=== PATIENT | male | born 1970 | race Caucasian/White ===

== ENCOUNTER 2021-04-19 18:29 | Inpatient (IN) | payer OTHER, SELFPAY ==
[2021-04-19 18:29] VITALS: PULSE 98; RESP 18; TEMP 36.6; O2SAT 97; BMI 74.2
--- NOTE | 2021-04-19 19:18 | CT_ITS ---
INDICATION: diffuse severe abd pain EXAMINATION: CT Abdomen And Pelvis W/ Contrast Injection TECHNIQUE: Helically acquired images were obtained of the abdomen and pelvis after IV contrast. A radiation dose optimization technique was used for this scan. IV Contrast dosage and agent: IV 100mL [id number] Oral contrast: None. COMPARISON: None. FINDINGS: Visualized lung bases: Bibasilar atelectasis. Liver: Diffusely hypodense consistent with fatty liver. 1.4 cm simple cyst in the left hepatic lobe. There is a 3 mm stone seen within the common bile duct near the ampulla. The common bile duct is dilated measuring up to 9 mm. Gallbladder: Unremarkable Spleen: Unremarkable Pancreas: There is peripancreatic fat stranding. No focal fluid collection. No hypoenhancing areas in the pancreas. No main pancreatic duct dilatation. Adrenal Glands: Unremarkable Kidneys: Scattered too small to characterize subcentimeter hypodensities bilaterally. Vasculature: Mild scattered aortoiliac atherosclerotic calcifications. GI Tract: Unremarkable Lymphadenopathy: None Peritoneum: No ascites. Bladder: Collapsed. Reproductive organs: Unremarkable Bones/Soft tissues: No suspicious osseous or soft tissue lesions CT/Abdomen/Pelvis W IV Cont ONLY IMPRESSION: Gallstone pancreatitis with choledocholithiasis from a 3 mm stone seen at the ampulla with associated CBD dilatation. Consider ERCP. Electronically Signed: Nik Romero MD at 20:23 EDT Tel , Service support ,
--- NOTE | 2021-04-19 19:20 | ED.VIS.GI ---
HPI HPI - GI History of Present Illness Chief Complaint: Abd Pain Informant: patient and spouse/S.O. Abdominal Pain/Flank Pain Onset: Today (Several hours prior to arrival) Context: Sudden Onset Timing: Continuous (Not colicky) Quality: - (pain) Location: Diffuse (Across periumbilical abdomen bilaterally without radiation) Current Severity: Severe Maximum Severity: Severe Worsened by: Nothing Relieved by: Nothing Nausea/Vomiting/Emesis GI Symptom: Positive for Nausea and Vomiting (Started after pain onset) Diarrhea/Melena/Hematochezia GI Symptom: Positive for - (Last normal bowel movement was today, normal according to patient); Negative for Diarrhea, Melena and Hematochezia Associated Symptoms Associated Symptoms: Negative for Dysuria, Frequency, Hematuria and Urgency Narrative Narrative: Patient never had pain like this before. No history of prior abdominal surgeries. Did have some alcohol last night but none today. No history of pancreas issues. Recent Illness/Hospitalization: No [facility] Medical History (Updated 04/19/21 @ 21:[address] Alexandre Paz MD) HTN (hypertension) Hyperlipemia Home Medications lisinopril 5 mg PO DAILY 04/19/21 [History Last Taken Unknown] Allergy/AdvReac Type Severity Reaction Status Date / Time No Known Allergies Allergy Verified 04/19/21 18:31 Social History Smoking Status: Current every day smoker tobacco type: cigarettes ROS ROS ED Constitutional Constitutional ED: Denies chills or fever(s) Eyes Eyes: Denies change in vision or diplopia ENT ENT ED: Denies rhinorrhea or sore throat Cardiovascular Cardiovascular: Denies chest pain or palpitations Respiratory/Chest Respiratory/Chest: Denies cough or dyspnea Gastrointestinal Gastrointestinal: Reports as per HPI, abdominal pain, nausea and vomiting; Denies diarrhea Genitourinary Genitourinary ED: Denies dysuria or hematuria Musculoskeletal Musculoskeletal: Denies back pain or neck pain Integumentary Denies abscess or rash Neurologic Neurologic: Denies headache(s), paresthesias or weakness Psychiatric Psychiatric: Denies anxiety or suicidal thoughts EXAM Physical Exam Const Vital Signs: 04/19/21 18:29 Temperature 97.8 F Temperature Source Temporal Pulse Rate 98 Respiratory Rate 18 Pulse Ox 97 Oxygen Delivery Method Room Air Positive well nourished and well developed Constitutional Narrative: Patient in acute painful distress, wincing in pain General Appearance ED: well developed HEENT Reports moist mucous membranes normocephalic and atraumatic Eyes PERRL and EOMs intact bilaterally Neck full ROM and supple Resp normal respiratory effort and clear to auscultation bilaterally Cardio regular rate, regular rhythm and no murmurs GI non-distended Auscultation: normoactive bowel sounds Palpation: soft and tender epigastric (Only; no significant tenderness elsewhere, negative Mccoy's) Back/Spine no CVA tenderness General Back: other FROM Extremity normal to inspection General Extremety ED: Negative for edema, pulses abnormal or tenderness General Extremity: Negative for edema or pulses abnormal Neuro oriented x3, CN's II-XII intact bilaterally and no sensory deficits noted Sensorium / Orientation: awake and alert Motor Exam: strength 5/5 throughout Skin no rashes or lesions noted and no wounds MDM MDM MDM Narrative Medical decision making narrative: Labs and imaging consistent with gallstone pancreatitis with choledocholithiasis as shown below. Discussed with Dr. So who came and saw and admitted the patient. Symptoms partially improved with morphine and Zofran but the patient required hydromorphone. At the time of admission, patient is clinically and hemodynamically stable Lab Data Attestation: I reviewed the patient's lab results. Labs: Laboratory Results - last 24 hr 04/19/21 04/19/21 04/19/21 18:20 18:40 18:40 WBC 16.9 H RBC 5.62 Hgb 16.2 Hct 50.3 MCV 89.5 MCH 28.8 MCHC 32.2 RDW Std Deviation 42.6 RDW Coeff of Kimberlyn 13.0 Plt Count 295 MPV 11.8 Immature Gran % (Auto) 0.900 Neut % (Auto) 69.1 Lymph % (Auto) 18.0 L [place] % (Auto) 9.7 Eos % (Auto) 1.9 Baso % (Auto) 0.4 Absolute Neuts (auto) 11.7 H Absolute Lymphs (auto) 3.04 Nucleated RBC % 0 Differential Comment Diff Path Review May foll Platelet Estimate ADEQUATE RBC Morphology NORM C+C Sodium 136 Potassium 3.5 Chloride 101 Carbon Dioxide 25.0 Anion Gap 10 BUN 11 Creatinine 1.66 H Estim Creat Clear Calc 48.67 Est GFR (MDRD) Af Amer 56 L Est GFR (MDRD) Non-Af 46 L BUN/Creatinine Ratio 6.6 L Glucose 107 H Calcium 9.1 Total Bilirubin 4.00 H Direct Bilirubin 3.03 H AST 248 H ALT 436 H Alkaline Phosphatase 210 H Total Protein 8.1 Albumin 3.8 Globulin 4.3 H Lipase 8300 H Urine Color Urine Clarity Urine pH Ur Specific [place] Urine Protein Urine Glucose (UA) Urine Ketones Urine Occult Blood Urine Nitrite Urine Bilirubin Urine Urobilinogen Ur Leukocyte Esterase Urine RBC Urine WBC Ur Squamous Epith Cells Amorphous Sediment Urine Bacteria Urine Mucus 04/19/21 21:00 WBC RBC Hgb Hct MCV MCH MCHC RDW Std Deviation RDW Coeff of Kimberlyn Plt Count MPV Immature Gran % (Auto) Neut % (Auto) Lymph % (Auto) [place] % (Auto) Eos % (Auto) Baso % (Auto) Absolute Neuts (auto) Absolute Lymphs (auto) Nucleated RBC % Differential Comment Diff Path Review Platelet Estimate RBC Morphology Sodium Potassium Chloride Carbon Dioxide Anion Gap BUN Creatinine Estim Creat Clear Calc Est GFR (MDRD) Af Amer Est GFR (MDRD) Non-Af BUN/Creatinine Ratio Glucose Calcium Total Bilirubin Direct Bilirubin AST ALT Alkaline Phosphatase Total Protein Albumin Globulin Lipase Urine Color Yellow Urine Clarity Clear Urine pH 7.0 Ur Specific [place] 1.010 Urine Protein 100 H Urine Glucose (UA) Normal Urine Ketones 15 H Urine Occult Blood 25 H Urine Nitrite Negative Urine Bilirubin Negative Urine Urobilinogen Normal Ur Leukocyte Esterase Negative Urine RBC 5-10 SEEN Urine WBC 0-5 SEEN Ur Squamous Epith Cells 0 SEEN Amorphous Sediment 1+ Urine Bacteria 0 SEEN Urine Mucus 0 SEEN Radiography Diagnostic Testing: Radiology Impression Abdomen/Pelvis CT 04/19/21 19:18 IMPRESSION: Gallstone pancreatitis with choledocholithiasis from a 3 mm stone seen at the ampulla with associated CBD dilatation. Consider ERCP. Electronically Signed: Nik Romero MD at 20:23 EDT Tel , Service support , Discharge Plan Dx/Rx/DC Orders Clinical Impression: Acute gallstone pancreatitis, Choledocholithiasis with obstruction Disposition Disposition: [facility]
[2021-04-19 19:27] LABS: Anion Gap 10 (5-15); BUN 11 mg/dL (7-18); BUN/Creat Ratio 6.6 RATIO (10-20); Calcium,Total 9.1 mg/dL (8.5-10.1); Chloride 101 mmol/L (98-107); Creatinine, Serum 1.66 mg/dL (0.70-1.30); EST Glomerular Filtration Rate 46 mL/min (>60); Est Glom Filt Rate - Afr Amer 56 mL/min (>60); Estimated Creatinine Clearance 48.67 ml/min; Glucose 107 mg/dL (74-106); Potassium 3.5 mmol/L (3.5-5.1); Sodium Level 136 mmol/L (136-145)
[2021-04-19 19:32] LABS: Absolute Lymphocyte Count 3.04 X10^3/uL (0.83-4.51); Absolute Neutrophil Count 11.7 X10^3/uL (2.0-7.7); Basophil# 0.07 X10^3/uL; Basophil% 0.4 % (0-1); Eosinophil# 0.32 X10^3/uL; Eosinophils% 1.9 % (0-5); Hematocrit 50.3 % (40-54); Hemoglobin 16.2 g/dL (13.0-16.5); Lymphocyte # 3.04 X10^3/ul (0.83-4.51); Mean Corp Hgb Conc 32.2 g/dL (32-36); Mean Corpuscular Hgb 28.8 pg (27.0-32.0); Mean Corpuscular Volume 89.5 fL (80-94); Mean Platelet Vol. 11.8 fl (6.2-12.0); Monocyte# 1.64 X10^3/uL; Monocyte% 9.7 % (0-10); NRBC Flagged by Analyzer 0 % (0-5); Neutrophil # 11.69 X10^3/uL (2.7-7.7); Neutrophil % 69.1 % (47-70); POSITIVE DIFFERENTIAL YES; Platelet Count 295 K/mm3 (150-450); RBC Distribution Width SD 42.6 fl (35.1-43.9); Red Blood Count 5.62 M/mm3 (4.6-6.2); White Blood Count 16.9 K/mm3 (4.4-11.0)
[2021-04-19 19:38] LABS: Differential Indicated SCAN CRITERIA MET
[2021-04-19] MEDS: Morphine 4 MG/ML Syringe IV (20:03)
[2021-04-19] MEDS: Ondansetron 4 MG/2 ML Vial IV (20:03)
[2021-04-19] MEDS: 0.9% Normal Saline 1,000 ML 999 ML IV ×2 (20:03→21:43)
[2021-04-19 20:21] LABS: Platelet Estimate ADEQUATE (ADEQ); Red Cell Morphology NORM C+C NORMAL (NORM C&C)
[2021-04-19 20:33] LABS: AST(SGOT) 248 U/L (15-37); Alanine Aminotransfer ALT/SGPT 436 U/L (16-61); Albumin, Serum 3.8 g/dL (3.2-5.0); Alkaline Phosphatase 210 U/L (45-117); Bilirubin, Direct 3.03 mg/dL (0.00-0.30); Globulin 4.3 g/dL (2.2-4.2); Lipase 8300 U/L (73-393); Protein, Total 8.1 g/dL (6.4-8.2)
[2021-04-19] MEDS: HYDROmorphone 1 MG/ML Syringe IV ×2 (21:04→22:50)
[2021-04-19 21:11] LABS: Bacteria 0 SEEN /hpf (None Seen); Mucous, Urine 0 SEEN /hpf (<or=2+); Squamous Epithelial Cells - UA 0 SEEN /hpf (0-5)
[2021-04-19 21:12] LABS: Color, Urine Yellow (Yellow); Glucose, Dipstick Normal (Normal); Ketone-Dipstick 15 mg/dl (Negative); Leukocyte Esterase-Dipstick Negative /ul (Negative); Nitrite-Dipstick Negative (Negative); Occult Blood-Urine 25 /ul (Negative); Protein-Dipstick 100 mg/dl (Negative); Urine Bilirubin Dipstick Negative (Negative); Urine Clarity Clear (Clear); Urine Urobilinogen Normal (Normal)
[2021-04-19 21:36] LABS: Amorphous Sediment 1+; Red Blood Cells-Urine 5-10 SEEN /hpf (0-5); White Blood Cells 0-5 SEEN /hpf (0-5)
--- NOTE | 2021-04-19 21:42 | PCM.HP.STD ---
HPI - General HPI Narrative CAROLINE BARNETT, is a 50 M who presents with abdominal pain since this afternoon. Patient reports he has upper abdominal pain which does not radiate. He does have nausea but no vomiting. He is having chills with no fever. He has never had this happen to him before. No other symptoms. [facility] Medical History (Updated 04/19/21 @ 21:[address] Alexandre Paz MD) HTN (hypertension) Hyperlipemia Home Medications lisinopril 5 mg PO DAILY 04/19/21 [History Last Taken Unknown] Allergy/AdvReac Type Severity Reaction Status Date / Time No Known Allergies Allergy Verified 04/19/21 18:31 Social History Smoking Status: Current every day smoker tobacco type: cigarettes ROS Constitutional Constitutional: Reports chills; Denies anorexia, fatigue or fever(s) Eyes Eyes: Denies blurry vision ENT HEENT: Denies abnormal hearing Cardiovascular Cardiovascular: Denies chest pain Respiratory/Chest Respiratory/Chest: Denies cough, dyspnea on exertion or shortness of breath with exertion Gastrointestinal Gastrointestinal: Reports abdominal pain and nausea; Denies change in bowel habits, diarrhea, dysphagia or melena Genitourinary Genitourinary: Denies change in urinary stream Musculoskeletal Musculoskeletal: Denies abnormal gait Integumentary Integumentary: Denies jaundice Neurologic Neurologic: Denies abnormal gait Psychiatric Psychiatric: Denies anxiety Endocrine Endocrinology: Denies flushing Hematologic/Lymphatic Hematologic/Lymphatic: Denies easy bleeding Vital Signs Vital Signs Vital Signs: 04/19/21 18:29 Temperature 97.8 F Temperature Source Temporal Pulse Rate 98 Respiratory Rate 18 Pulse Ox 97 Oxygen Delivery Method Room Air Weight Weight: 473 lb 15.901 oz Body Mass Index (BMI) 74.2 Physical Exam Const oriented x3 and no apparent distress Resp normal respiratory effort Cardio regular rate and regular rhythm GI soft to palpation GI Narrative: Upper abdominal tenderness with no guarding or rebound Inspection: Negative for abdominal distention Extremity normal to inspection Results Lab / Micro Data Result Diagrams: 04/19/21 18:40 04/19/21 18:40 Labs: Laboratory Results - last 24 hr 04/19/21 04/19/21 04/19/21 18:20 18:40 18:40 WBC 16.9 H RBC 5.62 Hgb 16.2 Hct 50.3 MCV 89.5 MCH 28.8 MCHC 32.2 RDW Std Deviation 42.6 RDW Coeff of Kimberlyn 13.0 Plt Count 295 MPV 11.8 Immature Gran % (Auto) 0.900 Neut % (Auto) 69.1 Lymph % (Auto) 18.0 L [place] % (Auto) 9.7 Eos % (Auto) 1.9 Baso % (Auto) 0.4 Absolute Neuts (auto) 11.7 H Absolute Lymphs (auto) 3.04 Nucleated RBC % 0 Differential Comment Diff Path Review May foll Platelet Estimate ADEQUATE RBC Morphology NORM C+C Sodium 136 Potassium 3.5 Chloride 101 Carbon Dioxide 25.0 Anion Gap 10 BUN 11 Creatinine 1.66 H Estim Creat Clear Calc 48.67 Est GFR (MDRD) Af Amer 56 L Est GFR (MDRD) Non-Af 46 L BUN/Creatinine Ratio 6.6 L Glucose 107 H Calcium 9.1 Total Bilirubin 4.00 H Direct Bilirubin 3.03 H AST 248 H ALT 436 H Alkaline Phosphatase 210 H Total Protein 8.1 Albumin 3.8 Globulin 4.3 H Lipase 8300 H Urine Color Urine Clarity Urine pH Ur Specific [place] Urine Protein Urine Glucose (UA) Urine Ketones Urine Occult Blood Urine Nitrite Urine Bilirubin Urine Urobilinogen Ur Leukocyte Esterase Urine RBC Urine WBC Ur Squamous Epith Cells Amorphous Sediment Urine Bacteria Urine Mucus 04/19/21 21:00 WBC RBC Hgb Hct MCV MCH MCHC RDW Std Deviation RDW Coeff of Kimberlyn Plt Count MPV Immature Gran % (Auto) Neut % (Auto) Lymph % (Auto) [place] % (Auto) Eos % (Auto) Baso % (Auto) Absolute Neuts (auto) Absolute Lymphs (auto) Nucleated RBC % Differential Comment Diff Path Review Platelet Estimate RBC Morphology Sodium Potassium Chloride Carbon Dioxide Anion Gap BUN Creatinine Estim Creat Clear Calc Est GFR (MDRD) Af Amer Est GFR (MDRD) Non-Af BUN/Creatinine Ratio Glucose Calcium Total Bilirubin Direct Bilirubin AST ALT Alkaline Phosphatase Total Protein Albumin Globulin Lipase Urine Color Yellow Urine Clarity Clear Urine pH 7.[address] [place] 1.010 Urine Protein 100 H Urine Glucose (UA) Normal Urine Ketones 15 H Urine Occult Blood 25 H Urine Nitrite Negative Urine Bilirubin Negative Urine Urobilinogen Normal Ur Leukocyte Esterase Negative Urine RBC 5-10 SEEN Urine WBC 0-5 SEEN Ur Squamous Epith Cells 0 SEEN Amorphous Sediment 1+ Urine Bacteria 0 SEEN Urine Mucus 0 SEEN Radiology Impression Abdomen/Pelvis CT 04/19/21 19:18 IMPRESSION: Gallstone pancreatitis with choledocholithiasis from a 3 mm stone seen at the ampulla with associated CBD dilatation. Consider ERCP. Electronically Signed: Nik Romero MD at 20:23 EDT Tel , Service support , Assessment & Plan Assessment/Plan (1) Acute gallstone pancreatitis: PLAN: The patient has elevated lipase and his CT shows a stone in the distal common bile duct with dilation of the bile duct. The patient has gallstone pancreatitis. I discussed this with the patient in detail. I also discussed with him that I believe it is odd that he has only 1 calcified gallstone with none in the gallbladder. I will order an ultrasound the gallbladder to see if there are any noncalcified stones in the gallbladder. Patient will be admitted to the floor and given fluid bolus. He will be started on prophylactic antibiotics to prevent cholangitis. Labs will be rechecked in the morning and if LFTs remain elevated and there is no improvement I will perform an ERCP. If there is improvement in labs and ultrasound shows other stones in the gallbladder I will plan for laparoscopic cholecystectomy with cholangiogram. If there are no other stones in the gallbladder I may perform MRCP as he may not need a cholecystectomy. Patient understands the treatment plan and is in agreement. All questions were answered. He will be admitted to the floor and have close monitoring of urine output and vital signs. Continue resuscitation and fluid bolus. Adan So MD Pager: [facility] [address] [place] [address] [place] [address] Office:
[2021-04-19] MEDS: 0.9% Normal Saline 1,000 ML 150 ML IV (21:52)
[2021-04-19 22:25] VITALS: BP 112/72; PULSE 63; RESP 14; TEMP 36.6; O2SAT 95
[2021-04-19 23:32] VITALS: BMI 33.7
[2021-04-19 23:49] VITALS: BP 125/70; PULSE 65; RESP 16; TEMP 37.1; O2SAT 95
[2021-04-19 23:57] VITALS: RESP 14; O2SAT 91
[2021-04-20] VITALS (13 sets, daily range): BP systolic 117–143; BP diastolic 66–85; PULSE 63–102; RESP 16; TEMP 36.8–37.6; O2SAT 92–96; BMI 33.7
--- NOTE | 2021-04-20 | US_ITS ---
STUDY: ABDOMINAL ULTRASOUND - RIGHT UPPER QUADRANT REASON FOR VISIT: Male, 50 years old . Gallstone pancreatitis. TECHNIQUE: Ultrasound evaluation of the right upper quadrant was performed with real-time and static rhodes-scale imaging. TECHNICAL QUALITY: Limited. Examination limited by bowel gas. COMPARISON: Comparison is made with prior CT scan of the abdomen dated 04/19/2021. FINDINGS: Liver: The liver measures 14.3 cm. There is increased echogenicity consistent with fatty infiltration. The bile ducts are within normal limits. There is hepatic color flow. The direction of portal flow is hepatopetal. There is no demonstrated mass lesion. Gallbladder: Normal distended gallbladder. The gallbladder wall measures 3.1 mm. There is a negative sonographic Mccoy''s sign. There is no pericholecystic fluid. There is a solitary echogenic gallstone within the gallbladder. Common Bile Duct (C.B.D.): The common bile duct measures 8 mm. Only the proximal portion of the common bile duct wasn''t visualized due to overlying bowel gas. The tiny stone seen in the distal portion of the common bile duct on the CT scan is not seen on the ultrasound. Pancreas: There is nonvisualization of the pancreas due to overlying bowel gas. Right Kidney: Normal size of the right kidney. The right kidney measures 9.4 cm x 5.5 cm x 5.9 cm. Normal renal cortex. The right cortex measures 2.1 cm. There is a 1.5 cm x 1.2 cm x 1.2 cm cyst. There is no right hydronephrosis. US/Gallbladder IMPRESSION: Limited study due to overlying bowel gas. Fatty infiltration of the liver. 6 mm x 6 mm x 4 mm solitary gallstone in the gallbladder lumen. Dilated common bile duct. The distal portion of the common bile duct was not visualized due to overlying bowel gas. Electronically Signed: Issac Hudson MD at 8:58 EDT , Service support ,
[2021-04-20] MEDS: HYDROmorphone 1 MG/ML Syringe IV ×5 (01:12→20:22)
[2021-04-20] MEDS: 0.9% Normal Saline 1,000 ML 150 ML IV ×3 (04:11→23:50)
--- NOTE | 2021-04-20 06:00 | EKG12_ITS ---
Test Reason : PRE-OP Blood Pressure : / mmHG Vent. Rate : 082 BPM Atrial Rate : 082 BPM P-R Int : 168 ms QRS Dur : 082 ms QT Int : 384 ms P-R-T Axes : 040 -03 009 degrees QTc Int : 448 ms Normal sinus rhythm Normal ECG When compared with ECG of 26-JAN-2008 17:06, No significant change was found Confirmed by CELESTE CLARK, JOSE ([id number]), video effects editor MARIBELL SMITH ([id number]) on 04/25/2021 7:48:10 AM Referred By: KAY Confirmed By:JOSE ALONSO MD
[2021-04-20] MEDS: 0.9% Saline Lock 10 ML Syringe IV (06:40)
[2021-04-20 06:49] LABS: Absolute Lymphocyte Count 3.04 X10^3/uL (0.83-4.51); Absolute Neutrophil Count 12.2 X10^3/uL (2.0-7.7); Basophil# 0.08 X10^3/uL; Basophil% 0.5 % (0-1); Eosinophils% 1.7 % (0-5); Hematocrit 51.7 % (40-54); Hemoglobin 16.4 g/dL (13.0-16.5); Lymphocyte # 3.04 X10^3/ul (0.83-4.51); Lymphocyte % 17.4 % (19-41); Mean Corp Hgb Conc 31.7 g/dL (32-36); Mean Corpuscular Hgb 28.8 pg (27.0-32.0); Mean Corpuscular Volume 90.7 fL (80-94); Mean Platelet Vol. 12.4 fl (6.2-12.0); Monocyte# 1.74 X10^3/uL; NRBC Flagged by Analyzer 0 % (0-5); Neutrophil # 12.16 X10^3/uL (2.7-7.7); Neutrophil % 69.8 % (47-70); POSITIVE DIFFERENTIAL YES; Platelet Count 288 K/mm3 (150-450); RBC Distribution Width CV 13.2 % (11.6-14.6); White Blood Count 17.4 K/mm3 (4.4-11.0)
[2021-04-20 07:02] LABS: Differential Indicated SCAN CRITERIA MET
[2021-04-20 07:37] LABS: AST(SGOT) 269 U/L (15-37); Alanine Aminotransfer ALT/SGPT 447 U/L (16-61); Albumin, Serum 4.1 g/dL (3.2-5.0); Alkaline Phosphatase 224 U/L (45-117); Anion Gap 16 (5-15); BUN 12 mg/dL (7-18); BUN/Creat Ratio 7.1 RATIO (10-20); Calcium,Total 9.2 mg/dL (8.5-10.1); Chloride 99 mmol/L (98-107); Creatinine, Serum 1.69 mg/dL (0.70-1.30); EST Glomerular Filtration Rate 45 mL/min (>60); Est Glom Filt Rate - Afr Amer 55 mL/min (>60); Globulin 4.1 g/dL (2.2-4.2); Glucose 98 mg/dL (74-106); Potassium 4.8 mmol/L (3.5-5.1); Protein, Total 8.2 g/dL (6.4-8.2); Sodium Level 136 mmol/L (136-145)
--- NOTE | 2021-04-20 08:01 | PCM.PN.SRG ---
Subjective Subjective Patient still having abdominal pain with no nausea vomiting Objective Data Objective Data Vital Signs: Vital Signs Temp Pulse Resp BP Pulse Ox 98.2 F 74 16 135/85 H 95 04/20/21 03:51 04/20/21 03:51 04/20/21 03:51 04/20/21 03:51 04/20/21 03:51 Oxygen Delivery Method Room Air Weight: 215 lb 2.738 oz Body Mass Index (BMI) 33.7 Intake & Output: Intake and Output for Last 24 Hours 04/18/21 04/19/21 04/20/21 23:59 23:59 23:59 Intake Total 2049 1000 / 1000 Balance 2049 1000 / 1000 Lab / Micro Data Result Diagrams: 04/20/21 06:04 04/20/21 06:04 Labs: Laboratory Results - last 24 hr 04/19/21 04/19/21 04/19/21 18:20 18:40 18:40 WBC 16.9 H RBC 5.62 Hgb 16.2 Hct 50.3 MCV 89.5 MCH 28.8 MCHC 32.2 RDW Std Deviation 42.6 RDW Coeff of Kimberlyn 13.0 Plt Count 295 MPV 11.8 Immature Gran % (Auto) 0.900 Neut % (Auto) 69.1 Lymph % (Auto) 18.0 L [place] % (Auto) 9.7 Eos % (Auto) 1.9 Baso % (Auto) 0.4 Absolute Neuts (auto) 11.7 H Absolute Lymphs (auto) 3.04 Nucleated RBC % 0 Differential Comment Diff Path Review May foll Platelet Estimate ADEQUATE RBC Morphology NORM C+C Sodium 136 Potassium 3.5 Chloride 101 Carbon Dioxide 25.0 Anion Gap 10 BUN 11 Creatinine 1.66 H Estim Creat Clear Calc 48.67 Est GFR (MDRD) Af Amer 56 L Est GFR (MDRD) Non-Af 46 L BUN/Creatinine Ratio 6.6 L Glucose 107 H Calcium 9.1 Total Bilirubin 4.00 H Direct Bilirubin 3.03 H AST 248 H ALT 436 H Alkaline Phosphatase 210 H Total Protein 8.1 Albumin 3.8 Globulin 4.3 H Albumin/Globulin Ratio Lipase 8300 H Urine Color Urine Clarity Urine pH Ur Specific [place] Urine Protein Urine Glucose (UA) Urine Ketones Urine Occult Blood Urine Nitrite Urine Bilirubin Urine Urobilinogen Ur Leukocyte Esterase Urine RBC Urine WBC Ur Squamous Epith Cells Amorphous Sediment Urine Bacteria Urine Mucus 04/19/21 04/20/21 04/20/21 21:00 06:04 06:04 WBC 17.4 H RBC 5.70 Hgb 16.4 Hct 51.7 MCV 90.7 MCH 28.8 MCHC 31.7 L RDW Std Deviation 44.0 H RDW Coeff of Kimberlyn 13.2 Plt Count 288 MPV 12.4 H Immature Gran % (Auto) 0.600 Neut % (Auto) 69.8 Lymph % (Auto) 17.4 L [place] % (Auto) 10.0 Eos % (Auto) 1.7 Baso % (Auto) 0.5 Absolute Neuts (auto) 12.2 H Absolute Lymphs (auto) 3.04 Nucleated RBC % 0 Differential Comment Diff Path Review May foll Platelet Estimate RBC Morphology Sodium 136 Potassium 4.8 Chloride 99 Carbon Dioxide 21.0 Anion Gap 16 H BUN 12 Creatinine 1.69 H Estim Creat Clear Calc 47.80 Est GFR (MDRD) Af Amer 55 L Est GFR (MDRD) Non-Af 45 L BUN/Creatinine Ratio 7.1 L Glucose 98 Calcium 9.2 Total Bilirubin 4.00 H Direct Bilirubin AST 269 H ALT 447 H Alkaline Phosphatase 224 H Total Protein 8.2 Albumin 4.1 Globulin 4.1 Albumin/Globulin Ratio 1.0 Lipase 04372 H Urine Color Yellow Urine Clarity Clear Urine pH 7.0 Ur Specific [place] 1.010 Urine Protein 100 H Urine Glucose (UA) Normal Urine Ketones 15 H Urine Occult Blood 25 H Urine Nitrite Negative Urine Bilirubin Negative Urine Urobilinogen Normal Ur Leukocyte Esterase Negative Urine RBC 5-10 SEEN Urine WBC 0-5 SEEN Ur Squamous Epith Cells 0 SEEN Amorphous Sediment 1+ Urine Bacteria 0 SEEN Urine Mucus 0 SEEN Micro: Microbiology 04/19/21 21:45 Mucosa - Nose SARS-CoV-2 Antigen (Rapid) - Final Radiography Diagnostic Testing: Radiology Impression Abdomen/Pelvis CT 04/19/21 19:18 IMPRESSION: Gallstone pancreatitis with choledocholithiasis from a 3 mm stone seen at the ampulla with associated CBD dilatation. Consider ERCP. Electronically Signed: Nik Romero MD at 20:23 EDT Tel , Service support , Physical Exam Const oriented x3 and no apparent distress Resp normal respiratory effort Cardio regular rate and regular rhythm GI soft to palpation Inspection: Negative for abdominal distention Palpation: tender Assessment & Plan Assessment/Plan (1) Acute gallstone pancreatitis: PLAN: The patient's liver enzymes are unchanged since yesterday. The patient is still having discomfort. I will plan for ERCP this afternoon. I discussed ERCP in detail with the patient. I discussed the risks include abdominal to bleeding, infection, perforation of the bile duct or bowel, worsening of pancreatitis. The patient understands and is willing to proceed with ERCP. I discussed the possibility of stent placement. The patient's lipase has increased to over 42,000. The patient also still has elevated creatinine although he says he is urinating I will order a fluid bolus. Continue antibiotics and PPI. SCDs. N.p.o. with IV fluids. Since the stone in his duct is calcified and there are no calcified stones in his gallbladder I am also ordering an ultrasound the gallbladder see if there are additional stones in the gallbladder and if laparoscopic cholecystectomy will be necessary. Adan So MD Pager: [facility] [address] [place] [address], [address] [place] [address] Office:
[2021-04-20] MEDS: 0.9% Normal Saline 1,000 ML 999 ML IV (08:10)
--- NOTE | 2021-04-20 12:10 | CASEMGMT ---
CORBY BERNAL Assessment: Face to Face with pt for initial transition planning/care coordination assessment. RN GABE introduced self and role at [facility], pt voices understanding and consents to assessment. Pt is A/O x4 and answers all questions appropriately at this time. Pt lying in bed with eyes closed, at bedside. Care providers, pharmacy, and demographics verified/updated. Admitting Dx: gallstone pancreatitis PCP:Ivon at the [facility] Specialists: Pt denies having any specialists. Preferred Pharmacy: [facility] Retail Insurance: [facility] Prescription Benefit: through the [facility] LW/HPOA: Pt denies having a LW or DPOA. LNOK: Evonne Peters, Living Arrangements: Pt lives with in a two story house with 1 step to enter. Pt is I in ADL's and denies concerns at home. Transportation: Pt drives self and denies concerns with transportation. DME/HHC/SNF: Pt has CPAP through [facility], denies previous HHC or SNF stays. 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 Pt states no concerns with going home at time of dc. Pt states no further concerns/needs. CM to follow. Advised pt to ask CM if any further question/concerns/needs arise, voices understanding. Pt Goal: Home Plan: Home
--- NOTE | 2021-04-20 12:35 | NURSING ---
pt to surgery
[2021-04-20 12:48] LABS: Pathologist Review Reviewed
[2021-04-20 12:51] LABS: Pathologist Review Reviewed
[2021-04-20] MEDS: Lactated Ringers 1,000 ML 100 ML IV ×2 (13:00→14:16)
--- NOTE | 2021-04-20 13:30 | RAD_ITS ---
STUDY: ERCP. REASON FOR EXAM: Male, 50 years old. PAIN FLUOROSCOPY TIME (if supplied): ( 1 minute and 46 seconds. ) minutes/seconds. 2 images were submitted. TECHNIQUE: An ERCP was performed by the surgeon. Imaging was performed. COMPARISON: None. FINDINGS: Mildly dilated common bile duct. No flow of contrast is seen within the duodenum. Findings suggestive of a calculus in the distal portion of the common bile duct. RAD/ERCP Biliary Only IMPRESSION: Findings suggestive of a calculus in the distal portion of the common bile duct. Electronically Signed: Issac Hudson MD at 14:17 EDT , Service support ,
--- NOTE | 2021-04-20 14:16 | OP.ERCP_ITS ---
Patient Name: Austyn Honeycutt Procedure Date: 04/20/2021 10:36 AM Date of : 1970 Age: 50 Procedure: ERCP Indications: Bile duct stone(s) Providers: Adan So MD Medicines: General Anesthesia Patient Profile: This is a 50 year old male. Refer to note in patient chart for documentation of history and physical. Complications: No immediate complications. Procedure: Pre-Anesthesia Assessment: - Prior to the procedure, a History and Physical was performed, and patient medications and allergies were reviewed. The patient's tolerance of previous anesthesia was also reviewed. The risks and benefits of the procedure and the sedation options and risks were discussed with the patient. All questions were answered, and informed consent was obtained. Prior Anticoagulants: The patient has taken no previous anticoagulant or antiplatelet agents. After reviewing the risks and benefits, the patient was deemed in satisfactory condition to undergo the procedure. After obtaining informed consent, the scope was passed under direct vision. Throughout the procedure, the patient's blood pressure, pulse, and oxygen saturations were monitored continuously. The duodenoscope was introduced through the mouth, and advanced to the duodenum and used to inject contrast into the bile duct. The ERCP was accomplished without difficulty. The patient tolerated the procedure well. Scope In: 1:40:27 PM Scope Out: 1:49:39 PM Total Procedure Duration Time 0 hours 9 minutes 12 seconds Findings: A 0.035 inch x 260 cm straight Dreamwire was passed into the biliary tree. The bile duct was then deeply cannulated over the guidewire. Contrast was injected. I personally interpreted the bile duct images. There was brisk flow of contrast through the ducts. Biliary sphincterotomy was made with a monofilament sphincterotome using ERBE electrocautery. There was no post-sphincterotomy bleeding. The biliary tree was swept with a 12 mm balloon starting at the bifurcation. Sludge was swept from the duct. Impression: - A biliary sphincterotomy was performed. - The biliary tree was swept and sludge was found. Recommendation: - Return patient to hospital [facility] for ongoing care. - Resume previous diet. Procedure Code(s): --- Professional --- 42396, Endoscopic retrograde cholangiopancreatography (ERCP); with removal of calculi/debris from biliary/pancreatic duct(s) 37863, Endoscopic retrograde cholangiopancreatography (ERCP); with sphincterotomy/papillotomy Diagnosis Code(s): --- Professional --- K80.50, Calculus of bile duct without cholangitis or cholecystitis without obstruction CPT copyright 2017 [employer]. All rights reserved. The codes documented in this report are preliminary and upon reimbursement rep review may be revised to meet current compliance requirements. Adan So MD 04/20/2021 2:16:21 PM This report has been signed electronically. Number of Addenda: 0 Note Initiated On: 04/20/2021 10:36 AM
--- NOTE | 2021-04-20 14:16 | OP.CCLET_ITS ---
04/20/2021 [facility] Re : ERCP procedure for Austyn Honeycutt [facility] This procedure was performed on April. My impressions and recommendations are as follows: Impressions : - A biliary sphincterotomy was performed. - The biliary tree was swept and sludge was found. Recommendations : - Return patient to hospital [facility] for ongoing care. - Resume previous diet. My findings are described in the full procedure note, which is enclosed. If I can be of further assistance, please feel free to contact me at Doctor phone number(s): , Work: . Sincerely, Adan So MD 04/20/2021 2:16:21 PM This report has been signed electronically.
--- NOTE | 2021-04-20 15:37 | NURSING ---
pharmacy called regarding LR being in compatible with zosyn. Message relayed to Meeta TAVAREZ PACU.
[2021-04-21 00:21] VITALS: BP 133/76; PULSE 87; RESP 16; TEMP 37; O2SAT 97
[2021-04-21] MEDS: HYDROmorphone 1 MG/ML Syringe IV ×4 (02:53→20:06)
[2021-04-21 04:16] VITALS: BP 127/76; PULSE 95; RESP 16; TEMP 37.1; O2SAT 96
[2021-04-21] MEDS: 0.9% Normal Saline 1,000 ML 150 ML IV ×3 (06:01→19:12)
[2021-04-21 06:21] LABS: Absolute Lymphocyte Count 1.25 X10^3/uL (0.83-4.51); Absolute Neutrophil Count 17.2 X10^3/uL (2.0-7.7); Basophil# 0.03 X10^3/uL; Basophil% 0.1 % (0-1); Eosinophil# 0.68 X10^3/uL; Eosinophils% 3.2 % (0-5); Hematocrit 46.5 % (40-54); Hemoglobin 14.6 g/dL (13.0-16.5); Lymphocyte # 1.25 X10^3/ul (0.83-4.51); Lymphocyte % 5.9 % (19-41); Mean Corp Hgb Conc 31.4 g/dL (32-36); Mean Corpuscular Hgb 29.1 pg (27.0-32.0); Mean Corpuscular Volume 92.8 fL (80-94); Mean Platelet Vol. 12.2 fl (6.2-12.0); Monocyte# 1.99 X10^3/uL; Monocyte% 9.3 % (0-10); NRBC Flagged by Analyzer 0 % (0-5); Neutrophil # 17.19 X10^3/uL (2.7-7.7); Neutrophil % 80.6 % (47-70); POSITIVE DIFFERENTIAL YES; POSITIVE MORPHOLOGY YES; Platelet Count 187 K/mm3 (150-450); RBC Distribution Width CV 13.7 % (11.6-14.6); RBC Distribution Width SD 47.1 fl (35.1-43.9); Red Blood Count 5.01 M/mm3 (4.6-6.2); White Blood Count 21.3 K/mm3 (4.4-11.0)
[2021-04-21 06:53] LABS: Differential Indicated SCAN CRITERIA MET
[2021-04-21 06:57] LABS: ALB/GLOB Ratio 0.8 RATIO (0.9-2.4); AST(SGOT) 115 U/L (15-37); Alanine Aminotransfer ALT/SGPT 280 U/L (16-61); Albumin, Serum 3.1 g/dL (3.2-5.0); Alkaline Phosphatase 163 U/L (45-117); Anion Gap 5 (5-15); BUN 9 mg/dL (7-18); BUN/Creat Ratio 9.8 RATIO (10-20); Calcium,Total 8.2 mg/dL (8.5-10.1); Chloride 108 mmol/L (98-107); Creatinine, Serum 0.92 mg/dL (0.70-1.30); EST Glomerular Filtration Rate 91 mL/min (>60); Est Glom Filt Rate - Afr Amer 110 mL/min (>60); Estimated Creatinine Clearance 87.81 ml/min; Globulin 3.9 g/dL (2.2-4.2); Glucose 117 mg/dL (74-106); Lipase 1117 U/L (73-393); Potassium 4.4 mmol/L (3.5-5.1); Sodium Level 141 mmol/L (136-145)
[2021-04-21 06:58] LABS: Differential Comment SCANNED
--- NOTE | 2021-04-21 07:39 | PCM.PN.SRG ---
Subjective Subjective The patient reports his pain is improved with no nausea or vomiting overnight. Objective Data Objective Data Vital Signs: Vital Signs Temp Pulse Resp BP Pulse Ox 98.8 F 95 16 127/76 H 96 04/21/21 04:16 04/21/21 04:16 04/21/21 04:16 04/21/21 04:16 04/21/21 04:16 Oxygen Flow Rate (L/min) 2 Oxygen Delivery Method Nasal Cannula Weight: 215 lb 2.738 oz Body Mass Index (BMI) 33.7 Intake & Output: Intake and Output for Last 24 Hours 04/19/21 04/20/21 04/21/21 23:59 23:59 23:59 Intake Total 2049 5387.5 / 5387.5 977.5 / 977.5 Balance 2049 5387.5 / 5387.5 977.5 / 977.5 Lab / Micro Data Result Diagrams: 04/21/21 05:55 04/21/21 05:55 Labs: Laboratory Results - last 24 hr 04/19/21 04/20/21 04/21/21 18:40 06:04 05:55 WBC 21.3 H RBC 5.01 Hgb 14.6 Hct 46.5 MCV 92.8 MCH 29.1 MCHC 31.4 L RDW Std Deviation 47.1 H RDW Coeff of Kimberlyn 13.7 Plt Count 187 MPV 12.2 H Immature Gran % (Auto) 0.900 Neut % (Auto) 80.6 H Lymph % (Auto) 5.[address] [place] % (Auto) 9.3 Eos % (Auto) 3.2 Baso % (Auto) 0.1 Absolute Neuts (auto) 17.2 H Absolute Lymphs (auto) 1.25 Nucleated RBC % 0 Differential Comment SCANNED Diff Path Review Reviewed Reviewed February foll Sodium Potassium Chloride Carbon Dioxide Anion Gap BUN Creatinine Estim Creat Clear Calc Est GFR (MDRD) Af Amer Est GFR (MDRD) Non-Af BUN/Creatinine Ratio Glucose Calcium Total Bilirubin AST ALT Alkaline Phosphatase Total Protein Albumin Globulin Albumin/Globulin Ratio Lipase 04/21/21 05:55 WBC RBC Hgb Hct MCV MCH MCHC RDW Std Deviation RDW Coeff of Kimberlyn Plt Count MPV Immature Gran % (Auto) Neut % (Auto) Lymph % (Auto) [place] % (Auto) Eos % (Auto) Baso % (Auto) Absolute Neuts (auto) Absolute Lymphs (auto) Nucleated RBC % Differential Comment Diff Path Review Sodium 141 Potassium 4.4 Chloride 108 H Carbon Dioxide 28.0 Anion Gap 5 BUN 9 Creatinine 0.92 Estim Creat Clear Calc 87.81 Est GFR (MDRD) Af Amer 110 Est GFR (MDRD) Non-Af 91 BUN/Creatinine Ratio 9.8 L Glucose 117 H Calcium 8.2 L Total Bilirubin 1.20 H AST 115 H ALT 280 H Alkaline Phosphatase 163 H Total Protein 7.0 Albumin 3.1 L Globulin 3.9 Albumin/Globulin Ratio 0.8 L Lipase 1117 H Micro: Microbiology 04/19/21 21:45 Mucosa - Nose SARS-CoV-2 Antigen (Rapid) - Final Radiography Diagnostic Testing: Radiology Impression Gallbladder Ultrasound 04/20/21 00:00 IMPRESSION: Limited study due to overlying bowel gas. Fatty infiltration of the liver. 6 mm x 6 mm x 4 mm solitary gallstone in the gallbladder lumen. Dilated common bile duct. The distal portion of the common bile duct was not visualized due to overlying bowel gas. Electronically Signed: Issac Hudson MD at 8:58 EDT , Service support , ERCP X-Ray 04/20/21 13:30 IMPRESSION: Findings suggestive of a calculus in the distal portion of the common bile duct. Electronically Signed: Issac Hudson MD at 14:17 EDT , Service support , Physical Exam Const oriented x3 and no apparent distress Resp normal respiratory effort Cardio regular rate and regular rhythm GI soft to palpation GI Narrative: Very mild epigastric pain to deep palpation. Inspection: Negative for abdominal distention Extremity normal to inspection Assessment & Plan Assessment/Plan (1) Acute gallstone pancreatitis: PLAN: Patient had ERCP yesterday with clearance of his bile duct. Patient's LFTs are decreasing today. His symptoms seem to be improving and his creatinine has normalized. He is not passing flatus but he feels hungry and would like to try diet. I will start him on some clear liquids and see how he tolerates this. His lipase is almost down to normal. I discussed laparoscopic cholecystectomy with him. The patient only has one small gallstone in his gallbladder. I will see him back next week to discuss elective cholecystectomy in the near future. Adan So MD Pager: [facility] [address] [place] [address] [address] [place] [address] Office:
[2021-04-21 10:19] VITALS: BP 141/93; PULSE 77; RESP 18; TEMP 37; O2SAT 96
[2021-04-21 10:40] LABS: Pathologist Review Reviewed
[2021-04-21 16:03] VITALS: BP 140/91; PULSE 87; RESP 18; TEMP 37.1; O2SAT 92
[2021-04-21 20:14] VITALS: BP 144/84; PULSE 96; RESP 16; TEMP 37.4; O2SAT 97
[2021-04-21] MEDS: Lisinopril 5 MG Tablet PO (21:02)
[2021-04-22] VITALS (7 sets, daily range): BP systolic 146–151; BP diastolic 77–83; PULSE 77–96; RESP 16–20; TEMP 36.6–37; O2SAT 93–98
[2021-04-22] MEDS: HYDROmorphone 1 MG/ML Syringe IV ×7 (01:36→21:25)
[2021-04-22] MEDS: 0.9% Normal Saline 1,000 ML 150 ML IV (01:37)
--- NOTE | 2021-04-22 07:21 | PCM.PN.SRG ---
Subjective Subjective Patient is wanting sips of clears as he had some increased pain-after initially trying the clears yesterday. Patient states his pain is in his epigastric and is an 8/10. Patient also states that he has some shortness of breath or wheezing when laying down. IV fluids at 150 were stopped currently Objective Data Objective Data Vital Signs: Vital Signs Temp Pulse Resp BP Pulse Ox 97.8 F 94 18 151/77 H 98 04/22/21 02:15 04/22/21 06:50 04/22/21 06:50 04/22/21 02:15 04/22/21 06:50 Oxygen Flow Rate (L/min) 2 Oxygen Delivery Method Nasal Cannula Weight: 215 lb 2.738 oz Body Mass Index (BMI) 33.7 Intake & Output: Intake and Output for Last 24 Hours 04/20/21 04/21/21 04/22/21 23:59 23:59 23:59 Intake Total 5387.5 / 5387.5 3220.0 / 3220.0 1765.0 / 1765.0 Balance 5387.5 / 5387.5 3220.0 / 3220.0 1765.0 / 1765.0 Lab / Micro Data Result Diagrams: 04/21/21 05:55 04/21/21 05:55 Labs: Laboratory Results - last 24 hr 04/21/21 05:55 Diff Path Review Reviewed Micro: Microbiology 04/19/21 21:45 Mucosa - Nose SARS-CoV-2 Antigen (Rapid) - Final Physical Exam Resp normal respiratory effort Resp Narrative: No audible wheezing when sitting up Cardio regular rate GI GI Narrative: Abdomen: Soft, nondistended, tender in the epigastric, no peritoneal signs Assessment & Plan Assessment/Plan (1) Acute gallstone pancreatitis: PLAN: Continue patient on sips of clears. Did stop IV fluids due to patient's complaint of shortness of breath. Will give Lasix IV 20. Patient states he has been having good urine output only 3 voids are recorded. Continue pain control Labs pending Discussed with patient that if he is here till Saturday which is fairly likely would plan for a laparoscopic cholecystectomy with Dr. So. Stephanie Patel M.D. Pager: [phone] [facility] [address] [place] [address], [facility], [address] [place] [address] Office: [phone]
[2021-04-22 07:55] LABS: Absolute Lymphocyte Count 1.11 X10^3/uL (0.83-4.51); Absolute Neutrophil Count 15.8 X10^3/uL (2.0-7.7); Basophil# 0.03 X10^3/uL; Basophil% 0.2 % (0-1); Eosinophil# 0.02 X10^3/uL; Eosinophils% 0.1 % (0-5); Hematocrit 42.8 % (40-54); Hemoglobin 13.7 g/dL (13.0-16.5); Lymphocyte # 1.11 X10^3/ul (0.83-4.51); Lymphocyte % 5.8 % (19-41); Mean Corpuscular Hgb 29.1 pg (27.0-32.0); Mean Corpuscular Volume 90.9 fL (80-94); Mean Platelet Vol. 11.5 fl (6.2-12.0); Monocyte# 1.98 X10^3/uL; Monocyte% 10.4 % (0-10); NRBC Flagged by Analyzer 0 % (0-5); Neutrophil # 15.77 X10^3/uL (2.7-7.7); Neutrophil % 82.8 % (47-70); POSITIVE DIFFERENTIAL YES; Platelet Count 200 K/mm3 (150-450); RBC Distribution Width CV 13.4 % (11.6-14.6); RBC Distribution Width SD 45.1 fl (35.1-43.9); Red Blood Count 4.71 M/mm3 (4.6-6.2); White Blood Count 19.1 K/mm3 (4.4-11.0)
[2021-04-22 08:10] LABS: Differential Indicated SCAN CRITERIA MET
[2021-04-22 08:20] LABS: ALB/GLOB Ratio 0.7 RATIO (0.9-2.4); AST(SGOT) 57 U/L (15-37); Alanine Aminotransfer ALT/SGPT 179 U/L (16-61); Albumin, Serum 2.8 g/dL (3.2-5.0); Alkaline Phosphatase 135 U/L (45-117); Anion Gap 7 (5-15); BUN 8 mg/dL (7-18); BUN/Creat Ratio 10.9 RATIO (10-20); Calcium,Total 8.3 mg/dL (8.5-10.1); Chloride 107 mmol/L (98-107); Creatinine, Serum 0.73 mg/dL (0.70-1.30); EST Glomerular Filtration Rate 119 mL/min (>60); Est Glom Filt Rate - Afr Amer 144 mL/min (>60); Estimated Creatinine Clearance 110.67 ml/min; Globulin 4.1 g/dL (2.2-4.2); Glucose 105 mg/dL (74-106); Lipase 181 U/L (73-393); Potassium 3.8 mmol/L (3.5-5.1); Protein, Total 6.9 g/dL (6.4-8.2); Sodium Level 139 mmol/L (136-145)
[2021-04-22 08:28] LABS: Differential Comment SCANNED
[2021-04-22] MEDS: Furosemide 20 MG/2 ML VIAL IV (08:41)
[2021-04-22] MEDS: 0.9% Saline Lock 10 ML Syringe IV ×5 (08:41→21:25)
[2021-04-22] MEDS: Ipratropium/Albuterol Sulfate 3 ML AMPUL.NEB INHALATION ×2 (14:59→19:24)
[2021-04-22] MEDS: Lisinopril 5 MG Tablet PO (21:26)
[2021-04-23] MEDS: 0.9% Saline Lock 10 ML Syringe IV ×7 (02:05→21:21)
[2021-04-23] MEDS: HYDROmorphone 1 MG/ML Syringe IV ×6 (02:08→21:21)
[2021-04-23 03:04] VITALS: BP 134/84; PULSE 92; RESP 18; TEMP 37.3; O2SAT 93
--- NOTE | 2021-04-23 06:44 | PN.SURG_ITS ---
Subjective Subjective Patient's epigastric and back pain are improving however still present. Denies any flatus. Patient did have good diuresis with the Lasix states his breathing is better after getting 2 breathing treatments. Objective Data Objective Data Vital Signs: Vital Signs Temp Pulse Resp BP Pulse Ox 99.1 F 92 18 134/84 H 93 04/23/21 03:04 04/23/21 03:04 04/23/21 03:04 04/23/21 03:04 04/23/21 03:04 Oxygen Flow Rate (L/min) 2 Oxygen Delivery Method Room Air Weight: 215 lb 2.738 oz Body Mass Index (BMI) 33.7 Intake & Output: Intake and Output for Last 24 Hours 04/21/21 04/22/21 04/23/21 23:59 23:59 23:59 Intake Total 3220.0 / 3220.0 2695.0 / 2695.0 200 / 200 Output Total 1650 / 1650 550 / 550 Balance 3220.0 / 3220.0 1045.0 / 1045.0 -350 / -350 Lab / Micro Data Result Diagrams: 04/22/21 07:40 04/22/21 07:40 Labs: Laboratory Results - last 24 hr 04/22/21 04/22/21 07:40 07:40 WBC 19.1 H RBC 4.71 Hgb 13.7 Hct 42.8 MCV 90.9 MCH 29.1 MCHC 32.0 RDW Std Deviation 45.1 H RDW Coeff of Kimberlyn 13.4 Plt Count 200 MPV 11.5 Immature Gran % (Auto) 0.700 Neut % (Auto) 82.8 H Lymph % (Auto) 5.8 L [place] % (Auto) 10.4 H Eos % (Auto) 0.1 Baso % (Auto) 0.2 Absolute Neuts (auto) 15.8 H Absolute Lymphs (auto) 1.11 Nucleated RBC % 0 Differential Comment SCANNED Diff Path Review May foll Platelet Estimate Not Reportable Plt Morphology Comment Not Reportable Sodium 139 Potassium 3.8 Chloride 107 Carbon Dioxide 25.0 Anion Gap 7 BUN 8 Creatinine 0.73 Estim Creat Clear Calc 110.67 Est GFR (MDRD) Af Amer 144 Est GFR (MDRD) Non-Af 119 BUN/Creatinine Ratio 10.9 Glucose 105 Calcium 8.3 L Total Bilirubin 1.30 H AST 57 H ALT 179 H Alkaline Phosphatase 135 H Total Protein 6.9 Albumin 2.8 L Globulin 4.1 Albumin/Globulin Ratio 0.7 L Lipase 181 Micro: Microbiology 04/19/21 21:45 Mucosa - Nose SARS-CoV-2 Antigen (Rapid) - Final Physical Exam Resp normal respiratory effort Cardio regular rate GI GI Narrative: Abdomen: Soft, nondistended, tender in the epigastric, no peritoneal signs Assessment & Plan Assessment/Plan (1) Acute gallstone pancreatitis: PLAN: Continue patient on sips of clears. Good diuresis with Lasix Continue pain control Labs pending We will plan to make n.p.o. after midnight for laparoscopic cholecystectomy with Dr. So sometime tomorrow. Stephanie Patel M.D. Pager: [phone] [facility] [address] [place] [address], [facility], [address] [place] [address] Office: [phone]
[2021-04-23 07:12] VITALS: PULSE 108; RESP 20
[2021-04-23] MEDS: Ipratropium/Albuterol Sulfate 3 ML AMPUL.NEB INHALATION (07:12)
[2021-04-23 07:34] LABS: Absolute Lymphocyte Count 1.68 X10^3/uL (0.83-4.51); Absolute Neutrophil Count 12.2 X10^3/uL (2.0-7.7); Basophil# 0.04 X10^3/uL; Basophil% 0.2 % (0-1); Eosinophil# 0.09 X10^3/uL; Eosinophils% 0.6 % (0-5); Hemoglobin 13.2 g/dL (13.0-16.5); Lymphocyte # 1.68 X10^3/ul (0.83-4.51); Lymphocyte % 10.4 % (19-41); Mean Corpuscular Hgb 29.3 pg (27.0-32.0); Mean Corpuscular Volume 88.9 fL (80-94); Mean Platelet Vol. 11.2 fl (6.2-12.0); Monocyte# 2.03 X10^3/uL; Monocyte% 12.6 % (0-10); NRBC Flagged by Analyzer 0 % (0-5); Neutrophil # 12.18 X10^3/uL (2.7-7.7); Neutrophil % 75.7 % (47-70); POSITIVE DIFFERENTIAL YES; Platelet Count 207 K/mm3 (150-450); RBC Distribution Width CV 13.2 % (11.6-14.6); RBC Distribution Width SD 43.6 fl (35.1-43.9); White Blood Count 16.1 K/mm3 (4.4-11.0)
[2021-04-23 07:50] LABS: ALB/GLOB Ratio 0.6 RATIO (0.9-2.4); AST(SGOT) 44 U/L (15-37); Alanine Aminotransfer ALT/SGPT 129 U/L (16-61); Albumin, Serum 2.6 g/dL (3.2-5.0); Alkaline Phosphatase 106 U/L (45-117); Anion Gap 9 (5-15); BUN 10 mg/dL (7-18); BUN/Creat Ratio 15.9 RATIO (10-20); Calcium,Total 8.5 mg/dL (8.5-10.1); Chloride 102 mmol/L (98-107); Creatinine, Serum 0.63 mg/dL (0.70-1.30); EST Glomerular Filtration Rate 142 mL/min (>60); Est Glom Filt Rate - Afr Amer 172 mL/min (>60); Estimated Creatinine Clearance 128.24 ml/min; Globulin 4.1 g/dL (2.2-4.2); Glucose 97 mg/dL (74-106); Potassium 3.2 mmol/L (3.5-5.1); Protein, Total 6.7 g/dL (6.4-8.2); Sodium Level 137 mmol/L (136-145)
[2021-04-23 07:58] LABS: Differential Indicated SCAN CRITERIA MET
[2021-04-23 08:07] LABS: Platelet Estimate ADEQUATE (ADEQ); Red Cell Morphology NORM C+C NORMAL (NORM C&C)
[2021-04-23 09:58] VITALS: BP 148/74; PULSE 89; RESP 18; TEMP 37; O2SAT 96
[2021-04-23] MEDS: Potassium Chloride Oral Tablet 20 MEQ 60 MEQ PO (10:00)
[2021-04-23 18:05] VITALS: BP 140/85; PULSE 87; RESP 18; TEMP 37.2; O2SAT 94
[2021-04-23 21:18] VITALS: BP 141/95; PULSE 86; RESP 16; TEMP 37.1; O2SAT 94
[2021-04-23] MEDS: Lisinopril 5 MG Tablet PO (21:23)
[2021-04-24] VITALS (12 sets, daily range): BP systolic 127–169; BP diastolic 82–100; PULSE 75–98; RESP 16–20; TEMP 36.8–37.3; O2SAT 91–97; BMI 33.7
[2021-04-24] MEDS: 0.9% Saline Lock 10 ML Syringe IV (00:07)
[2021-04-24] MEDS: 0.9% Normal Saline 1,000 ML 50 ML IV ×2 (00:09→12:39)
[2021-04-24] MEDS: HYDROmorphone 1 MG/ML Syringe IV ×5 (01:34→21:24)
[2021-04-24 05:43] LABS: Absolute Lymphocyte Count 1.97 X10^3/uL (0.83-4.51); Absolute Neutrophil Count 11.1 X10^3/uL (2.0-7.7); Basophil# 0.06 X10^3/uL; Basophil% 0.4 % (0-1); Eosinophil# 0.28 X10^3/uL; Eosinophils% 1.8 % (0-5); Hematocrit 39.5 % (40-54); Hemoglobin 12.8 g/dL (13.0-16.5); Lymphocyte # 1.97 X10^3/ul (0.83-4.51); Lymphocyte % 12.8 % (19-41); Mean Corp Hgb Conc 32.4 g/dL (32-36); Mean Corpuscular Hgb 28.8 pg (27.0-32.0); Mean Corpuscular Volume 88.8 fL (80-94); Mean Platelet Vol. 10.9 fl (6.2-12.0); Monocyte# 1.89 X10^3/uL; Monocyte% 12.3 % (0-10); NRBC Flagged by Analyzer 0 % (0-5); Neutrophil % 72.1 % (47-70); POSITIVE DIFFERENTIAL YES; Platelet Count 241 K/mm3 (150-450); RBC Distribution Width CV 13.2 % (11.6-14.6); Red Blood Count 4.45 M/mm3 (4.6-6.2); White Blood Count 15.4 K/mm3 (4.4-11.0)
[2021-04-24 05:48] LABS: Differential Indicated SCAN CRITERIA MET
[2021-04-24 06:07] LABS: ALB/GLOB Ratio 0.6 RATIO (0.9-2.4); AST(SGOT) 51 U/L (15-37); Alanine Aminotransfer ALT/SGPT 112 U/L (16-61); Albumin, Serum 2.4 g/dL (3.2-5.0); Alkaline Phosphatase 106 U/L (45-117); Anion Gap 10 (5-15); BUN 11 mg/dL (7-18); BUN/Creat Ratio 20.1 RATIO (10-20); Calcium,Total 8.3 mg/dL (8.5-10.1); Chloride 104 mmol/L (98-107); Creatinine, Serum 0.55 mg/dL (0.70-1.30); EST Glomerular Filtration Rate 167 mL/min (>60); Est Glom Filt Rate - Afr Amer 202 mL/min (>60); Estimated Creatinine Clearance 146.89 ml/min; Globulin 4.2 g/dL (2.2-4.2); Glucose 85 mg/dL (74-106); Potassium 3.4 mmol/L (3.5-5.1); Protein, Total 6.6 g/dL (6.4-8.2); Sodium Level 138 mmol/L (136-145)
[2021-04-24] MEDS: Bupivacaine 0.25% 30 ML Vial (07:46)
--- NOTE | 2021-04-24 08:39 | NURSING ---
Pt transported to surgery via [place], OR transporter
--- NOTE | 2021-04-24 09:17 | PN.SURG_ITS ---
Subjective Subjective Patient had some continued epigastric pain overnight Objective Data Objective Data Vital Signs: Vital Signs Temp Pulse Resp BP Pulse Ox 99.2 F H 96 18 156/99 H 95 04/24/21 08:32 04/24/21 08:32 04/24/21 08:32 04/24/21 08:32 04/24/21 08:32 Oxygen Flow Rate (L/min) 2 Oxygen Delivery Method Room Air Weight: 215 lb 2.738 oz Body Mass Index (BMI) 33.7 Intake & Output: Intake and Output for Last 24 Hours 04/22/21 04/23/21 04/24/21 23:59 23:59 23:59 Intake Total 2695.0 / 2695.0 770 / 970 200 / 200 Output Total 1650 / 1650 1350 / 1850 500 / 500 Balance 1045.0 / 1045.0 -580 / -880 -300 / -300 Lab / Micro Data Result Diagrams: 04/24/21 05:14 04/24/21 05:14 Labs: Laboratory Results - last 24 hr 04/24/21 05:14: WBC 15.4 H, RBC 4.45 L, Hgb 12.8 L, Hct 39.5 L, MCV 88.8, MCH 28.8, MCHC 32.4, RDW Std Deviation 43.0, RDW Coeff of Kimberlyn 13.2, Plt Count 241, MPV 10.9, Immature Gran % (Auto) 0.600, Neut % (Auto) 72.1 H, Lymph % (Auto) 12.8 L, [place] % (Auto) 12.3 H, Eos % (Auto) 1.8, Baso % (Auto) 0.4, Absolute Neuts (auto) 11.1 H, Absolute Lymphs (auto) 1.97, Nucleated RBC % 0, Diff Path Review February04/24/21 05:14: Sodium 138, Potassium 3.4 L, Chloride 104, Carbon Dioxide 24.0, Anion Gap 10, BUN 11, Creatinine 0.55 L, Estim Creat Clear Calc 146.89, Est GFR (MDRD) Af Amer 202, Est GFR (MDRD) Non-Af 167, BUN/Creatinine Ratio 20.1 H, Glucose 85, Calcium 8.3 L, Total Bilirubin 1.10 H, AST 51 H, ALT 112 H, Alkaline Phosphatase 106, Total Protein 6.6, Albumin 2.4 L, Globulin 4.2, Albumin/Globu eros Ratio 0.6 L Micro: Microbiology 04/19/21 21:45 Mucosa - Nose SARS-CoV-2 Antigen (Rapid) - Final Physical Exam Const oriented x3 and no apparent distress Resp normal respiratory effort Cardio regular rate and regular rhythm GI soft to palpation Inspection: Negative for abdominal distention Palpation: tender epigastric Assessment & Plan Assessment/Plan (1) Acute gallstone pancreatitis: PLAN: Patient is still having some symptoms of pancreatitis although his lipase had returned to normal and his LFTs were coming down. I discussed laparoscopic cholecystectomy today. I will plan for laparoscopic cholecystectomy and then discharge the patient once his symptoms have fully resolved and he is tolerating a diet. I discussed the procedure in detail with the patient. I discussed the risks, benefits, and alternatives of the procedure. I discussed the risks including but not limited to bleeding, infection, injury to surrounding organs such as the liver, bile duct, bowels. I did discuss the possibility of having to convert to an open procedure as well as the possibility that if any injuries occurred this may necessitate further surgery at a tertiary care center. Adan So MD Pager: [facility] [address] [place] [address], [address] [place] [address] Office:
--- NOTE | 2021-04-24 09:48 | RAD_ITS ---
STUDY: INTRAOPERATIVE CHOLANGIOGRAM. REASON FOR EXAM: Male, 50 years old. LAP DINO WITH IOC FLUOROSCOPY TIME (if supplied): ( 7 seconds ) minutes/seconds. A cine run of 97 images was obtained. TECHNIQUE: Intraoperative cholangiogram was performed by the surgeon. Imaging was submitted. COMPARISON: None. FINDINGS: The intra and extrahepatic biliary ducts are unremarkable. There is free flow of contrast into the duodenum. RAD/Cholangiogram/ O R,Initial IMPRESSION: Unremarkable intraoperative cholangiogram. Electronically Signed: Issac Hudson MD at 14:49 EDT , Service support ,
--- NOTE | 2021-04-24 10:10 | GALL_PTH ---
PATIENT: CAROLINE BARNETT LOC: MS3 U#:[id number] AGE/SX: 50/M ROOM: [facility] RE04/19/[address]: Dr. Adan So MD : 1970 BED: 1 DIS: 04/25/2021 SPEC #: [id number] RECD: 04/24/21 11:27 STATUS: JOSE AMIRA #: [id number] CECILIA: 04/24/21 10:[address]: Adan So DEPT: SURGICAL PATHOLOGY RECD BY: Radha Wyman ENTERED: 04/24/21 11:59 SP TYPE: CHRISTY VIRK DR: [facility] Tissues: Gallbladder, NOS Procedures: Surgery Specimen Level III HEADER OPERATION: Laparoscopic cholecystectomy with IOC PRE-OP DIAGNOSIS: Acute gallstone pancreatitis TISSUE SUBMITTED: Gallbladder MICROSCOPIC DIAGNOSIS Gallbladder, cholecystectomy: Chronic cholecystitis. AM:uma 04/25/2021 MICROSCOPIC DESCRIPTION Slides are reviewed. GROSS DESCRIPTION Received is one container labeled with the patient's name and designated gallbladder. The specimen consists of a gallbladder measuring 8 cm in length and up to 3 cm in diameter. The external surface is pink-beltran, smooth and glistening for the most part. Focally it is granular, hemorrhagic and contains cautery artifact. The gallbladder contains green-yellow mucoid bile. No stones are identified in the container or in the gallbladder. The mucosa is bile-stained and without any mass lesions. The gallbladder wall measures up to 0.5 cm in thickness. Deputy Sheriff Lieutenant sections from the gallbladder and the cystic duct are submitted in one cassette. / SJ:rg 04/24/21 TC:3 CPT: 83326
--- NOTE | 2021-04-24 11:00 | PCM.OPRPT ---
Problems Associated Problem List Diagnoses (1) Acute gallstone pancreatitis: Report of Operation Date of Procedure: 04/24/21 Pre-Operative Diagnosis: Gallstone pancreatitis with cholelithiasis Post-Operative Diagnosis: Same Surgery/Procedure Performed:: Laparoscopic cholecystectomy with cholangiogram Description of Surgical Findings:: Normal intraoperative cholangiogram Specimen's removed: Gallbladder and contents Description of Procedure: After obtaining informed consent patient was brought back to the operating room. General anesthesia was induced. The abdomen was prepped and draped in usual sterile fashion. A small midline incision was made superior to the umbilicus and deepened to the level of fascia. The fascia was elevated and incised. Next the peritoneum was elevated and incised in the same fashion. Finger sweep was performed and the Carlin trocar was placed into the abdomen. The balloon was inflated. The abdomen was inflated to 15 mmHg. Next a camera was introduced into the abdomen and the abdomen was inspected. Next under direct visualization three 5-mm ports were placed one subxiphoid and 2 subcostal. Next the gallbladder was elevated and retracted toward the right shoulder. The peritoneum was stripped from the gallbladder. The infundibulum was located and retracted laterally. Next the triangle of Calot was dissected and the cystic duct and cystic artery were identified. Cholangiograms were performed. The Moraes clamp was used to clamp across the infundibulum and the catheter needle was inserted into the gallbladder. Under fluoroscopy contrast was instilled into the gallbladder and the common duct, cystic duct as well as proximal hepatic ducts were identified. There was good filling of the duodenum. There were no filling defects noted in the common bile duct. The clamp was removed as well as the needle and the infundibulum was grasped once more. Three hemolock clips were placed across the cystic duct. The cystic duct was then divided leaving 2 clips on the stump. The cystic artery was clipped and divided in the same fashion. The hook cautery was then used to take the gallbladder off of the gallbladder bed. Hemostasis was obtained. Gallbladder fossa was irrigated and no active bleeding or bile leakage was noted. Next the camera was introduced in the subxiphoid port. An Endopouch bag was placed through the umbilical port and the gallbladder was placed into it. The gallbladder was then removed through the umbilical incision. The camera was then reinserted through the umbilical port. The gallbladder fossa was inspected once more and noted to be hemostatic with no leaking bile. The abdomen was suctioned dry. The 5 mm ports were removed under direct visualization. The umbilical port was then removed and the air was removed from the abdomen. Next using an 0 Vicryl suture the umbilical fascia was closed in a [id number] fashion. The umbilical port site was irrigated local anesthetic was administered to all the incisions. All the incisions were closed with interrupted subcuticular 4-0 Monocryl sutures followed by Steri-Strips and dressings. The patient was awoken and taken to PACU in stable condition. Admit VTE Documentation VTE Mechan Device Prophylaxis: SCD's
[2021-04-24] MEDS: Ipratropium/Albuterol Sulfate 3 ML AMPUL.NEB INHALATION (11:08)
[2021-04-24 13:07] LABS: Pathologist Review Reviewed
[2021-04-24 13:09] LABS: Pathologist Review Reviewed
[2021-04-24] MEDS: Lisinopril 5 MG Tablet PO (21:24)
[2021-04-24] MEDS: Atorvastatin Calcium 10 MG Tablet PO (21:24)
[2021-04-25 00:26] VITALS: BP 130/76; PULSE 70; RESP 18; TEMP 36.6; O2SAT 98
[2021-04-25 03:52] VITALS: BP 135/85; PULSE 64; RESP 18; TEMP 36.7; O2SAT 94
[2021-04-25 06:37] LABS: Absolute Lymphocyte Count 1.46 X10^3/uL (0.83-4.51); Absolute Neutrophil Count 11.7 X10^3/uL (2.0-7.7); Basophil# 0.04 X10^3/uL; Basophil% 0.3 % (0-1); Eosinophil# 0.06 X10^3/uL; Eosinophils% 0.4 % (0-5); Hematocrit 39.2 % (40-54); Hemoglobin 12.7 g/dL (13.0-16.5); Lymphocyte # 1.46 X10^3/ul (0.83-4.51); Mean Corp Hgb Conc 32.4 g/dL (32-36); Mean Corpuscular Hgb 28.8 pg (27.0-32.0); Mean Corpuscular Volume 88.9 fL (80-94); Mean Platelet Vol. 11.8 fl (6.2-12.0); Monocyte# 1.23 X10^3/uL; Monocyte% 8.4 % (0-10); NRBC Flagged by Analyzer 0 % (0-5); Neutrophil # 11.65 X10^3/uL (2.7-7.7); Neutrophil % 79.7 % (47-70); Platelet Count 248 K/mm3 (150-450); RBC Distribution Width SD 42.8 fl (35.1-43.9); Red Blood Count 4.41 M/mm3 (4.6-6.2); White Blood Count 14.6 K/mm3 (4.4-11.0)
[2021-04-25 07:14] LABS: ALB/GLOB Ratio 0.5 RATIO (0.9-2.4); AST(SGOT) 90 U/L (15-37); Alanine Aminotransfer ALT/SGPT 136 U/L (16-61); Albumin, Serum 2.3 g/dL (3.2-5.0); Alkaline Phosphatase 108 U/L (45-117); Anion Gap 9 (5-15); BUN 13 mg/dL (7-18); BUN/Creat Ratio 22.2 RATIO (10-20); Calcium,Total 8.3 mg/dL (8.5-10.1); Chloride 104 mmol/L (98-107); Creatinine, Serum 0.59 mg/dL (0.70-1.30); EST Glomerular Filtration Rate 154 mL/min (>60); Est Glom Filt Rate - Afr Amer 187 mL/min (>60); Estimated Creatinine Clearance 136.93 ml/min; Globulin 4.3 g/dL (2.2-4.2); Glucose 111 mg/dL (74-106); Lipase 40 U/L (73-393); Potassium 3.8 mmol/L (3.5-5.1); Protein, Total 6.6 g/dL (6.4-8.2); Sodium Level 138 mmol/L (136-145)
[2021-04-25 08:38] VITALS: BP 141/88; PULSE 81; RESP 18; TEMP 36.7; O2SAT 96
--- NOTE | 2021-04-25 10:49 | DS.PCM_ITS ---
Providers Date of Admission: 04/19/21 Primary Care Physician: [facility] Reason For Visit: GALLSTONE PANCREATITIS Diagnosis Discharge Diagnosis (1) Acute gallstone pancreatitis: Status: Acute Code(s): K85.10 - Biliary acute pancreatitis without necrosis or infection (2) Choledocholithiasis with obstruction: Status: Acute Code(s): K80.51 - Calculus of bile duct without cholangitis or cholecystitis with obstruction Medications at Discharge Home Medications atorvastatin [Lipitor] 10 mg PO QHS 04/19/21 lisinopril 5 mg PO DAILY 04/19/21 ibuprofen 600 mg PO Q6H PRN PRN #0 tab 04/25/21 oxycodone 5 mg PO Q6H PRN 5 Days #15 tab 04/25/21 Hospital Course Operations cholecystecomy and ERCP Summary of Care Provided Hospital Course: Patient was admitted with gallstone pancreatitis and found to have elevated liver enzymes with a stone in his duct. The patient was taken for ERCP and stent was removed. Following this that the patient was kept n.p.o. until his pain resolved. Once his LFTs did decrease and his pancreatitis decreased in severity he was taken for laparoscopic cholecystectomy. Cholangiogram during this was normal. The following day the patient was having no abdominal pain and his LFTs normalized. Patient will be sent home. Weight / BMI Weight Weight: 215 lb 2.738 oz Body Mass Index (BMI) 33.7 ABG / Lab / Microbiology Data Result Diagrams: 04/25/21 05:51 04/25/21 05:51 Laboratory: Laboratory Results - last 24 hr 04/22/21 07:40: Diff Path Review Reviewed 04/23/21 07:20: Diff Path Review Reviewed 04/25/21 05:51: WBC 14.6 H, RBC 4.41 L, Hgb 12.7 L, Hct 39.2 L, MCV 88.9, MCH 28.8, MCHC 32.4, RDW Std Deviation 42.8, RDW Coeff of Kimberlyn 13.0, Plt Count 248, MPV 11.8, Immature Gran % (Auto) 1.200 H, Neut % (Auto) 79.7 H, Lymph % (Auto) 10.0 L, [place] % (Auto) 8.4, Eos % (Auto) 0.4, Baso % (Auto) 0.3, Absolute Neuts (auto) 11.7 H, Absolute Lymphs (auto) 1.46, Nucleated RBC % 0 04/25/21 05:51: Sodium 138, Potassium 3.8, Chloride 104, Carbon Dioxide 25.0, Anion Gap 9, BUN 13, Creatinine 0.59 L, Estim Creat Clear Calc 136.93, Est GFR (MDRD) Af Amer 187, Est GFR (MDRD) Non-Af 154, BUN/Creatinine Ratio 22.2 H, Glucose 111 H, Calcium 8.3 L, Total Bilirubin 0.70, AST 90 H, ALT 136 H, Alkaline Phosphatase 108, Total Protein 6.6, Albumin 2.3 L, Globulin 4.3 H, Albumin/Globulin Ratio 0.5 L, Lipase 40 L Microbiology: Microbiology 04/19/21 21:45 Mucosa - Nose SARS-CoV-2 Antigen (Rapid) - Final Radiography Diagnostic Testing: Radiology Impression Cholangiogram 04/24/21 09:48 IMPRESSION: Unremarkable intraoperative cholangiogram. Electronically Signed: Issac Hudson MD at 14:49 EDT , Service support , D/C Instructions Discharge Diet: Light diet - advance as tolerated Discharge Activity: May Not Drive (for 2-3 days or while taking narcotic pain medications.) and - (Do not drive, work heavy equipment or sign legal documents for 24 hours.) May shower in (days): 1 Lifting Restrictions: 20 lbs for 2 weeks Additional Activity Instructions: Pain medication may cause nausea. You should typically eat light foods as you take your pain medications. Pain medication may also cause constipation. If this is a problem for you, please discuss with your doctor. Call your doctor if your incision/area has: Continuous Slow Oozing, Sudden Increased Bleeding, Increased Pain/ Swelling, Increased Redness and Foul Smelling Discharge Call your doctor if you observe: Fever of 101 or Higher Suture Line Care: Avoid Pulling/Pushing and Avoid Pinching/Bending Remove Dressing in: 2 days Additional Dressing/Incision Instructions: Leave operative bandaids on for 2 days. When you remove dressing, leave Steri-Strips on until your follow-up appointment, or until the Steri-Strips fall off on their own. Please Follow Up With: Adan So MD When: Please call to schedule 2 week follow up appointment. [phone] Meaningful Use Info Meaningful Use Diagnoses (Choose all that apply): None applicable Discharge Plan Admission Admit Date/Time: 04/19/21 21:41 Primary Reason for Your Visit: Pancreatitis Attending Provider: Adan So [facility] Discharge Orders/Prescriptions Prescriptions: New ibuprofen 600 mg Tablet 600 mg PO Q6H PRN PRN (Reason: Pain Score 1-10) Qty: 0 RF: 0 oxycodone 5 mg tablet 5 mg PO Q6H PRN (Reason: pain) 5 Days Qty: 15 RF: 0 Continued lisinopril 5 mg Tablet 5 mg PO DAILY RF: 0 atorvastatin [Lipitor] 10 mg Tablet 10 mg PO QHS RF: 0 Referrals / Follow [facility] [[facility] - Disposition Disposition (needs filled in before D/C Order can be placed): Home, Self Care
--- NOTE | 2021-04-25 10:49 | PCM.PN.SRG ---
Subjective Subjective Patient reported no abdominal pain except for incisional this morning. No nausea or vomiting. The patient did tolerate some regular food. Objective Data Objective Data Vital Signs: Vital Signs Temp Pulse Resp BP Pulse Ox 98.1 F 81 18 141/88 H 96 04/25/21 08:38 04/25/21 08:38 04/25/21 08:38 04/25/21 08:38 04/25/21 08:38 Oxygen Flow Rate (L/min) 2 Oxygen Delivery Method Room Air Weight: 215 lb 2.738 oz Body Mass Index (BMI) 33.7 Intake & Output: Intake and Output for Last 24 Hours 04/23/21 04/24/21 04/25/21 23:59 23:59 23:59 Intake Total 770 / 970 1495 / 1635 1280 / 1280 Output Total 1350 / 1850 1500 / 1900 900 / 900 Balance -580 / -880 -5 / -265 380 / 380 Lab / Micro Data Result Diagrams: 04/25/21 05:51 04/25/21 05:51 Labs: Laboratory Results - last 24 hr 04/22/21 07:40: Diff Path Review Reviewed 04/23/21 07:20: Diff Path Review Reviewed 04/25/21 05:51: WBC 14.6 H, RBC 4.41 L, Hgb 12.7 L, Hct 39.2 L, MCV 88.9, MCH 28.8, MCHC 32.4, RDW Std Deviation 42.8, RDW Coeff of Kimberlyn 13.0, Plt Count 248, MPV 11.8, Immature Gran % (Auto) 1.200 H, Neut % (Auto) 79.7 H, Lymph % (Auto) 10.0 L, [place] % (Auto) 8.4, Eos % (Auto) 0.4, Baso % (Auto) 0.3, Absolute Neuts (auto) 11.7 H, Absolute Lymphs (auto) 1.46, Nucleated RBC % 0 04/25/21 05:51: Sodium 138, Potassium 3.8, Chloride 104, Carbon Dioxide 25.0, Anion Gap 9, BUN 13, Creatinine 0.59 L, Estim Creat Clear Calc 136.93, Est GFR (MDRD) Af Amer 187, Est GFR (MDRD) Non-Af 154, BUN/Creatinine Ratio 22.2 H, Glucose 111 H, Calcium 8.3 L, Total Bilirubin 0.70, AST 90 H, ALT 136 H, Alkaline Phosphatase 108, Total Protein 6.6, Albumin 2.3 L, Globulin 4.3 H, Albumin/Globulin Ratio 0.5 L, Lipase 40 L Micro: Microbiology 04/19/21 21:45 Mucosa - Nose SARS-CoV-2 Antigen (Rapid) - Final Radiography Diagnostic Testing: Radiology Impression Cholangiogram 04/24/21 09:48 IMPRESSION: Unremarkable intraoperative cholangiogram. Electronically Signed: Issac Hudson MD at 14:49 EDT , Service support , Physical Exam Const oriented x3 and no apparent distress Resp normal respiratory effort Cardio regular rate and regular rhythm GI soft to palpation and non-tender Assessment & Plan Assessment/Plan (1) Acute gallstone pancreatitis: PLAN: Patient doing well after laparoscopic cholecystectomy. He is tolerating a diet and will be discharged home. Adan So MD Pager: [facility] [address] [place] [address], [address] [place] [address] Office:
[2021-04-25 13:07] LABS: Pathologist Review Reviewed
--- NOTE | 2021-04-25 13:34 | PHA.DC.MC ---
Pharmacy Service has performed discharge medication reconciliation and counseling for this patient. 1. IBUPROFEN 600MG PO Q6H PRN PAIN 1-10 2. OXYCODONE 5MG PO Q6H PRN PAIN The patient's discharge medication list was reviewed for discrepancies and discrepancies were resolved. Home Medications atorvastatin [Lipitor] 10 mg PO QHS 04/19/21 lisinopril 5 mg PO DAILY 04/19/21 ibuprofen 600 mg PO Q6H PRN PRN #0 tab 04/25/21 oxycodone 5 mg PO Q6H PRN 5 Days #15 tab 04/25/21 The patient was counseled on the following discharge medications and changes in medications for homegoing were reviewed. The Reason for Use, instructions for use, and potential side effects were reviewed for all new medications. The patient's questions regarding all of their medications were answered. The patient was able to verbally demonstrate an understanding of their discharge medications.
== END 2021-04-25 11:55 | disposition home or self-care (01) | DRG 418 ==
LOC: ED 21:02 → MS3 22:26
PROVIDERS: Surgery; Admitting Provider Surgery; Emergency Provider Emergency Medicine; Visit Provider Surgery
PROC: 0FC98ZZ Extirpation of Matter from Common Bile Duct, Via Natural or Artificial Opening Endoscopic (ICD-10-PCS; CPT 43260; principal; 2021-04-20 13:00)
PROC: 0FT44ZZ Resection of Gallbladder, Percutaneous Endoscopic Approach (ICD-10-PCS; CPT 47610; principal; 2021-04-24 09:50)
DX: K85.10 Biliary acute pancreatitis without necrosis or infection (principal); K80.51 Calculus of bile duct without cholangitis or cholecystitis with obstruction; E78.5 Hyperlipidemia, unspecified; I10 Essential (primary) hypertension; Z79.899 Other long term (current) drug therapy; F17.210 Nicotine dependence, cigarettes, uncomplicated; K80.20 Calculus of gallbladder without cholecystitis without obstruction
CPT/HCPCS: 36415; 74177; 74300; 74328; 76000; 76705; 80048; 80053; 80076; 81001; 83690; 85025; 87426; 88304; 93005; 94640; 99251; 99284; 99406; J7030; J7120; Q9967; A4216; G0463; J1940; J2405

== ENCOUNTER 2021-04-27 20:05 | Inpatient (IN) | payer OTHER, SELFPAY ==
[2021-04-24 08:32] VITALS: BMI 33.7
[2021-04-27 20:06] VITALS: BP 148/89; PULSE 98; RESP 15; TEMP 37.3; O2SAT 96; BMI 33.5
--- NOTE | 2021-04-27 21:33 | EKG12_ITS ---
Test Reason : DYSRHYTHMIA Blood Pressure : / mmHG Vent. Rate : 075 BPM Atrial Rate : 075 BPM P-R Int : 138 ms QRS Dur : 080 ms QT Int : 420 ms P-R-T Axes : 018 -15 -18 degrees QTc Int : 469 ms Normal sinus rhythm Low voltage QRS Nonspecific T wave abnormality Prolonged QT Abnormal ECG Confirmed by SARAHY CLARK, RAMIREZ ([id number]), fashion editor MARIBELL SMITH ([id number]) on 05/01/2021 9:47:36 AM Referred By: CARMELO Confirmed By:MARVIN WEATHERS MD
--- NOTE | 2021-04-27 21:34 | EX.ED.DYSGE1 ---
HPI History of Present Illness Chief Complaint: Fever Detail of Chief Complaint: Documented temperature to 100.6 ?F Onset/Context/Timing Onset: Today and Hours Context: Sudden Onset Quality: Documented temperature to 100.6 ?F Location: Not applicable Current Severity: Patient is status post ERCP last week and laparoscopic cholecystectomy on Maximum Severity: Mild Worsened by: Nothing Relieved by: Nothing Associated Symptoms Associated Symptoms: Nonproductive cough, nausea mild abdominal discomfort Narrative Narrative: Patient is a 50-year-old male who presents with documented temperature of 100.6 ?F. He was admitted on Saturday for gallstone pancreatitis. Underwent ERCP on . He had a laparoscopic cholecystectomy on Saturday. He contacted Dr. Adan Estes brother because of temperature of 100.6 ?F. He denies headache, visual, ocular auditory symptoms. He denies rhinorrhea, congestion postnasal drainage. No sore throat. Does have a slight nonproductive cough. He does report minimal abdominal discomfort. He denies urologic symptoms. He denies myalgias or arthralgias. He denies rash. Prior similar symptoms: No Recent Illness/Hospitalization: Yes PFSH PFSH Medical History Acute pancreatitis after endoscopic retrograde cholangiopancreatography (ERCP) CPAP (continuous positive airway pressure) dependence HTN (hypertension) Hyperlipemia Sleep apnea Smoker Home Medications atorvastatin [Lipitor] 10 mg PO QHS 04/19/21 [History Last Taken 04/18/21 22:00] lisinopril 5 mg PO DAILY 04/19/21 [History Last Taken 04/18/21 22:00] ibuprofen 600 mg PO Q6H PRN PRN #0 tab 04/25/21 [Rx Last Taken Unknown] oxycodone 5 mg PO Q6H PRN 5 Days #15 tab 04/25/21 [Rx Last Taken Unknown] Allergy/AdvReac Type Severity Reaction Status Date / Time No Known Allergies Allergy Verified 04/27/21 20:06 Surgical History (Updated 04/27/21 @ 20:44 by Araceli Angela) S/P cholecystectomy Social History (Updated 04/27/21 @ 21:[address] Sang Zhang MD) household members: spouse Smoking Status: Former smoker alcohol intake: current alcohol intake frequency: holidays/special occasions only substance use type: does not use ROS ROS ED Constitutional Constitutional ED: Reports chills and fever(s); Denies subjective, sweats or weight loss Eyes Eyes: Denies blurry vision, change in vision or diplopia ENT ENT ED: Denies ear pain, rhinorrhea or sore throat Cardiovascular Cardiovascular: Denies chest pain, orthopnea, palpitations or racing heartbeat Respiratory/Chest Respiratory/Chest: Reports cough; Denies dyspnea, dyspnea on exertion, orthopnea or sputum Gastrointestinal Gastrointestinal: Reports abdominal pain and nausea; Denies constipation, diarrhea, melena or vomiting Genitourinary Genitourinary ED: Denies dysuria, hematuria or urinary frequency Musculoskeletal Musculoskeletal: Denies arthralgias, back pain, myalgias or neck pain Integumentary Denies rash Neurologic Neurologic: Denies headache(s) or weakness Endocrine Endocrinology: Denies polydipsia, polyphagia or polyuria EXAM Physical Exam Const Vital Signs: 04/27/21 20:06 04/27/21 20:44 04/27/21 21:36 Temperature 99.2 F H Temperature Source Temporal Pulse Rate 98 Respiratory Rate 15 Respiratory Effort Normal Non-Labored Respiratory Pattern Normal Blood Pressure 148/89 H Blood Pressure Mean 108 Pulse Ox 96 Oxygen Delivery Method Room Air Room Air 04/27/21 22:29 Temperature 98.7 F Temperature Source Oral Pulse Rate 74 Respiratory Rate 30 H Respiratory Effort Respiratory Pattern Blood Pressure 140/84 H Blood Pressure Mean 102 Pulse Ox 97 Oxygen Delivery Method Room Air Positive well nourished, well developed and obese General Appearance ED: well developed; Negative for cyanotic or diaphoretic Nutritional Appearance: obese HEENT Reports TM's clear and dry mucous membranes Tympanic Membrane ED: Yes TM's clear Mouth ED: Yes dry mucous membranes Mouth: dry mucous membranes Eyes PERRL and EOMs intact bilaterally General Eye ED: Negative for pale conjunctiva or scleral icterus Neck no lymphadenopathy, supple and no JVD Chest Wall inspection of chest normal Resp normal respiratory effort and clear to auscultation bilaterally Cardio regular rate, regular rhythm, S1 normal heart sound, S2 normal heart sound and no murmurs GI normal to inspection, nondistended, normoactive bowel sounds; Negative for non-tender or non-distended Auscultation: hypoactive bowel sounds Palpation: soft and tender other (Tenderness in the proximity of the port sites. There is no fluctuance. There is no warmth.) Back/Spine no CVA tenderness Extremity normal to inspection General Extremety ED: Negative for edema or tenderness General Extremity: Negative for edema Neuro oriented x3, CN's II-XII intact bilaterally and no sensory deficits noted Sensorium / Orientation: alert Motor Exam: strength 5/5 throughout Psych mental status grossly normal Skin no rashes or lesions noted MDM MDM MDM Narrative Medical decision making narrative: Blood work was obtained to since he is a postop patient as well as chest x-ray to evaluate for cause of fever i.e. atelectasis, pneumonia, postop infection. Clinically is dehydrated in the hand he received 1 L of normal saline. Lab Data Attestation: I reviewed the patient's lab results. Lab results narrative: Patient does have 3 sirs criteria with a normal lactate and no evidence of endorgan dysfunction. Because there is no evidence of endorgan dysfunction blood cultures were not obtained prior to administration of antibiotics.. Labs: Laboratory Results - last 24 hr 04/27/21 04/27/21 04/27/21 20:40 20:40 20:40 WBC 14.5 H RBC 5.03 Hgb 14.4 Hct 43.4 MCV 86.3 MCH 28.6 MCHC 33.2 RDW Std Deviation 40.0 RDW Coeff of Kimberlyn 12.8 Plt Count 299 MPV 11.8 Immature Gran % (Auto) 2.300 H Neut % (Auto) 68.2 Lymph % (Auto) 18.0 L [place] % (Auto) 10.1 H Eos % (Auto) 0.9 Baso % (Auto) 0.5 Absolute Neuts (auto) 9.9 H Absolute Lymphs (auto) 2.61 Nucleated RBC % 0 PT INR APTT Sodium 137 Potassium 3.0 L Chloride 101 Carbon Dioxide 29.0 Anion Gap 7 BUN 8 Creatinine 0.78 Estim Creat Clear Calc 103.58 Est GFR (MDRD) Af Amer 134 Est GFR (MDRD) Non-Af 110 BUN/Creatinine Ratio 10.2 Glucose 98 Lactic Acid 0.9 Calcium 8.4 L Total Bilirubin 1.00 AST 45 H ALT 109 H Alkaline Phosphatase 108 Total Protein 6.9 Albumin 2.6 L Globulin 4.3 H Albumin/Globulin Ratio 0.6 L Lipase 343 Urine Color Urine Clarity Urine pH Ur Specific [place] Urine Protein Urine Glucose (UA) Urine Ketones Urine Occult Blood Urine Nitrite Urine Bilirubin Urine Urobilinogen Ur Leukocyte Esterase Urine RBC Urine WBC Ur Squamous Epith Cells Urine Bacteria Urine Mucus 04/27/21 04/27/21 21:50 22:45 WBC RBC Hgb Hct MCV MCH MCHC RDW Std Deviation RDW Coeff of Kimberlyn Plt Count MPV Immature Gran % (Auto) Neut % (Auto) Lymph % (Auto) [place] % (Auto) Eos % (Auto) Baso % (Auto) Absolute Neuts (auto) Absolute Lymphs (auto) Nucleated RBC % PT 14.8 INR 1.2 APTT 26.8 Sodium Potassium Chloride Carbon Dioxide Anion Gap BUN Creatinine Estim Creat Clear Calc Est GFR (MDRD) Af Amer Est GFR (MDRD) Non-Af BUN/Creatinine Ratio Glucose Lactic Acid Calcium Total Bilirubin AST ALT Alkaline Phosphatase Total Protein Albumin Globulin Albumin/Globulin Ratio Lipase Urine Color Yellow Urine Clarity Clear Urine pH 8.0 Ur Specific [place] 1.010 Urine Protein Negative Urine Glucose (UA) Normal Urine Ketones 15 H Urine Occult Blood Negative Urine Nitrite Negative Urine Bilirubin Negative Urine Urobilinogen 1 H Ur Leukocyte Esterase Negative Urine RBC 0 SEEN Urine WBC 0 SEEN Ur Squamous Epith Cells 0 SEEN Urine Bacteria 0 SEEN Urine Mucus 0 SEEN Radiography Chest X-Ray - ED: 2 View, Normal, Heart, Mediastinum, Bony Structures, Left Effusion and - (There may be an infiltrate left lower lobe. Difficult to evaluate because of the effusion and may represent atelectasis. However with an elevated white count, fever, and 3 sirs criteria will treat for pneumonia. Since he was sent in by his surgeon will contact Dr. Estes brought to) Diagnostic Testing: Radiology Impression Chest X-Ray 04/27/21 22:00 IMPRESSION: Small left pleural effusion with mild left basilar atelectasis versus infiltrate. at 2228 Reported and signed by: Lauri Brooks MD Electronically Signed: Lauri Brooks MD at 22:27 EDT Tel , Service support , EKG Initial EKG: Attestation: I personally reviewed and interpreted this EKG as follows: Interpretation: Sinus Rhythm (Ventricular rate of 75. DC interval is 138 ms. Cures duration 80 ms. QT duration 4 to 20 ms. [employer] is normal. There is evidence of low voltage. There is prolonged QT with a QTC of 469 ms.) Discharge Plan Dx/Rx/DC Orders Clinical Impression: HAP (hospital-acquired pneumonia), Pleural effusion on left, Sepsis Disposition Disposition: Acute Care Hospital [facility]
[2021-04-27 21:53] LABS: Absolute Lymphocyte Count 2.61 X10^3/uL (0.83-4.51); Absolute Neutrophil Count 9.9 X10^3/uL (2.0-7.7); Basophil# 0.07 X10^3/uL; Basophil% 0.5 % (0-1); Eosinophil# 0.13 X10^3/uL; Eosinophils% 0.9 % (0-5); Hematocrit 43.4 % (40-54); Hemoglobin 14.4 g/dL (13.0-16.5); Lymphocyte # 2.61 X10^3/ul (0.83-4.51); Mean Corp Hgb Conc 33.2 g/dL (32-36); Mean Corpuscular Hgb 28.6 pg (27.0-32.0); Mean Corpuscular Volume 86.3 fL (80-94); Mean Platelet Vol. 11.8 fl (6.2-12.0); Monocyte# 1.46 X10^3/uL; Monocyte% 10.1 % (0-10); NRBC Flagged by Analyzer 0 % (0-5); Neutrophil # 9.87 X10^3/uL (2.7-7.7); Neutrophil % 68.2 % (47-70); Platelet Count 299 K/mm3 (150-450); RBC Distribution Width CV 12.8 % (11.6-14.6); Red Blood Count 5.03 M/mm3 (4.6-6.2); White Blood Count 14.5 K/mm3 (4.4-11.0)
[2021-04-27] MEDS: 0.9% Normal Saline 1,000 ML 999 ML IV (21:59)
--- NOTE | 2021-04-27 22:00 | RAD_ITS ---
HISTORY: Nonproductive cough and fever EXAMINATION/TECHNIQUE: XR Chest 2 Views COMPARISON: None FINDINGS: LINES/DEVICES: court monitor leads. LUNGS: Small left pleural effusion and adjacent mild left basilar opacification. No pulmonary edema. Mildly elevated right hemidiaphragm. No pneumothorax. MEDIASTINUM AND CARDIOVASCULAR STRUCTURES: Cardiac silhouette not enlarged. Central airways and mediastinal contour are unremarkable. BONES AND SOFT TISSUES: No acute findings. RAD/Chest PA and Lateral IMPRESSION: Small left pleural effusion with mild left basilar atelectasis versus infiltrate. at 2228 Reported and signed by: Lauri Brooks MD Electronically Signed: Lauri Brooks MD at 22:27 EDT Tel , Service support ,
[2021-04-27 22:04] LABS: ALB/GLOB Ratio 0.6 RATIO (0.9-2.4); AST(SGOT) 45 U/L (15-37); Alanine Aminotransfer ALT/SGPT 109 U/L (16-61); Albumin, Serum 2.6 g/dL (3.2-5.0); Alkaline Phosphatase 108 U/L (45-117); Anion Gap 7 (5-15); BUN 8 mg/dL (7-18); BUN/Creat Ratio 10.2 RATIO (10-20); Calcium,Total 8.4 mg/dL (8.5-10.1); Chloride 101 mmol/L (98-107); Creatinine, Serum 0.78 mg/dL (0.70-1.30); EST Glomerular Filtration Rate 110 mL/min (>60); Est Glom Filt Rate - Afr Amer 134 mL/min (>60); Estimated Creatinine Clearance 103.58 ml/min; Globulin 4.3 g/dL (2.2-4.2); Glucose 98 mg/dL (74-106); Lipase 343 U/L (73-393); Protein, Total 6.9 g/dL (6.4-8.2); Sodium Level 137 mmol/L (136-145)
[2021-04-27 22:10] LABS: International Normalized Ratio 1.2; Prothrombin Time (Protime)PT. 14.8 SECONDS (11.7-14.9)
[2021-04-27 22:10] LABS: Lactic Acid 0.9 mmol/L (0.4-1.9)
[2021-04-27 22:19] LABS: Partial Thromboplast Time 26.8 Seconds (24.1-36.2)
[2021-04-27 22:29] VITALS: BP 140/84; PULSE 74; RESP 30; TEMP 37.1; O2SAT 97
[2021-04-27 22:52] LABS: Bacteria 0 SEEN /hpf (None Seen); Mucous, Urine 0 SEEN /hpf (<or=2+); Red Blood Cells-Urine 0 SEEN /hpf (0-5); Squamous Epithelial Cells - UA 0 SEEN /hpf (0-5); White Blood Cells 0 SEEN /hpf (0-5)
[2021-04-27 23:03] LABS: Color, Urine Yellow (Yellow); Glucose, Dipstick Normal (Normal); Ketone-Dipstick 15 mg/dl (Negative); Leukocyte Esterase-Dipstick Negative /ul (Negative); Nitrite-Dipstick Negative (Negative); Occult Blood-Urine Negative /ul (Negative); Protein-Dipstick Negative (Negative); Urine Bilirubin Dipstick Negative (Negative); Urine Clarity Clear (Clear); Urine Urobilinogen 1 mg/dl (Normal)
--- NOTE | 2021-04-27 23:56 | HP.PCM.HOS_ITS ---
HPI - General HPI Narrative CAROLINE BARNETT, is a 50 M with a PMh a outlined who presents via the ED with a complaint of fever. He was admitted last week for gallstone pancreatitis and subsequently had ERCP and subseqeuntly laparoscopic cholecystectomy on Saturday. He developed a fever one night prior to admission. His temperature went up to 100F, and he had associated shortness of breath and a cough which was not productive. He denied any headache, chest pain, palpitations, nausea or vomiting. Review of systems is otherwise negative. Vitals were BP of 140/84, RR of 30, temp of 98.7F, [place] of 74 and CBC showed wbc of 14.5, with hb of 14.4 and platelets of 299. BNp showed sodium of 137, potassium of 3, and Cr of 0.78. Urinalysis was negative for UTI. CXR showed small left pleural effusion with mild left basilar atelectasis vs infiltrate. In light of patient's presentation and recent surgery, he was started on IV vancomycin and zosyn, and is being admitted to be managed for health associated pneumonia. PFSH Medical History Acute pancreatitis after endoscopic retrograde cholangiopancreatography (ERCP) CPAP (continuous positive airway pressure) dependence HTN (hypertension) Hyperlipemia Sleep apnea Smoker Home Medications atorvastatin [Lipitor] 10 mg PO QHS 04/19/21 [History Last Taken 04/18/21 22:00] lisinopril 5 mg PO DAILY 04/19/21 [History Last Taken 04/18/21 22:00] ibuprofen 600 mg PO Q6H PRN PRN #0 tab 04/25/21 [Rx Last Taken Unknown] oxycodone 5 mg PO Q6H PRN 5 Days #15 tab 04/25/21 [Rx Last Taken Unknown] Allergy/AdvReac Type Severity Reaction Status Date / Time No Known Allergies Allergy Verified 04/27/21 20:06 Surgical History (Updated 04/27/21 @ 20:44 by Araceli Angela) S/P cholecystectomy Social History (Updated 04/27/21 @ 21:[address] Sang Zhang MD) household members: spouse Smoking Status: Former smoker alcohol intake: current alcohol intake frequency: holidays/special occasions only substance use type: does not use ROS Constitutional Constitutional: Reports chills, fever(s) and malaise; Denies anorexia, fatigue or weakness Eyes Eyes: Denies double vision ENT HEENT: Denies abnormal hearing, headache(s) or nasal congestion Cardiovascular Cardiovascular: Reports dyspnea on exertion; Denies chest pain, edema, lightheadedness, orthopnea, palpitations, paroxysmal nocturnal dyspnea or rapid heart rate Respiratory/Chest Respiratory/Chest: Reports cough, dyspnea, shortness of breath at rest and shortness of breath with exertion; Denies excessive phlegm production, hemoptysis, productive cough or wheezing Gastrointestinal Gastrointestinal: Denies abdominal pain, constipation, diarrhea, hematochezia, loose stools, melena, nausea or vomiting Genitourinary Genitourinary: Denies burning urination, dysuria or urinary frequency Musculoskeletal Musculoskeletal: Denies arthralgias Neurologic Neurologic: Denies dizziness, focal weakness, numbness or syncope Psychiatric Psychiatric: Denies anxiety or depression Endocrine Endocrinology: Denies change in body appearance Hematologic/Lymphatic Hematologic/Lymphatic: Denies anemia Vital Signs Vital Signs Vital Signs: 04/27/21 20:06 04/27/21 20:44 04/27/21 21:36 Temperature 99.2 F H Temperature Source Temporal Pulse Rate 98 Respiratory Rate 15 Respiratory Effort Normal Non-Labored Respiratory Pattern Normal Blood Pressure 148/89 H Blood Pressure Mean 108 Pulse Ox 96 Oxygen Delivery Method Room Air Room Air 04/27/21 22:29 Temperature 98.7 F Temperature Source Oral Pulse Rate 74 Respiratory Rate 30 H Respiratory Effort Respiratory Pattern Blood Pressure 140/84 H Blood Pressure Mean 102 Pulse Ox 97 Oxygen Delivery Method Room Air Weight Weight: 213 lb 13.574 oz Body Mass Index (BMI) 33.5 Physical Exam Const alert, oriented x3 and no apparent distress General Appearance: cooperative HEENT normocephalic, head/scalp atraumatic, hearing grossly normal bilaterally and moist oral mucous membranes Eyes PERRL, EOMs intact bilaterally and conjunctivae normal Neck no lymphadenopathy Resp No normal respiratory effort, no retractions and No no use of accessory muscles Resp Narrative: diminished breath sounds bibasally, no wheezes or crackles. On room air. Cardio regular rate, regular rhythm, S1 normal heart sound, S2 normal heart sound and no murmurs GI normal to inspection, nondistended, normoactive bowel sounds, soft to palpation, non-tender and non-distended Extremity normal to inspection, full ROM and no clubbing, cyanosis or edema Skin no rashes or lesions noted Neuro oriented x3 Sensorium / Orientation: awake and alert Psych affect normal Results Lab / Micro Data Result Diagrams: 04/27/21 20:40 04/27/21 20:40 Labs: Laboratory Results - last 24 hr 04/27/21 20:40: WBC 14.5 H, RBC 5.03, Hgb 14.4, Hct 43.4, MCV 86.3, MCH 28.6, MCHC 33.2, RDW Std Deviation 40.0, RDW Coeff of [place] 12.8, Plt Count 299, MPV 11.8, Immature Gran % (Auto) 2.300 H, Neut % (Auto) 68.2, Lymph % (Auto) 18.0 L, [place] % (Auto) 10.1 H, Eos % (Auto) 0.9, Baso % (Auto) 0.5, Absolute Neuts (auto) 9.9 H, Absolute Lymphs (auto) 2.61, Nucleated RBC % 0 04/27/21 20:40: Sodium 137, Potassium 3.0 L, Chloride 101, Carbon Dioxide 29.0, Anion Gap 7, BUN 8, Creatinine 0.78, Estim Creat Clear Calc 103.58, Est GFR (MDRD) Af Amer 134, Est GFR (MDRD) Non-Af 110, BUN/Creatinine Ratio 10.2, Glucose 98, Calcium 8.4 L, Total Bilirubin 1.00, AST 45 H, ALT 109 H, Alkaline Phosphatase 108, Total Protein 6.9, Albumin 2.6 L, Globulin 4.3 H, Albumin/Globulin Ratio 0.6 L, Lipase 343 04/27/21 20:40: Lactic Acid 0.9 04/27/21 21:50: PT 14.8, INR 1.2, APTT 26.8 04/27/21 22:45: Urine Color Yellow, Urine Clarity Clear, Urine pH 8.0, Ur Specific [place] 1.010, Urine Protein Negative, Urine Glucose (UA) Normal, Urine Ketones 15 H, Urine Occult Blood Negative, Urine Nitrite Negative, Urine Bilirubin Negative, Urine Urobilinogen 1 H, Ur Leukocyte Esterase Negative, Urine RBC 0 SEEN, Urine WBC 0 SEEN, Ur Squamous Epith Cells 0 SEEN, Urine Bacteria 0 SEEN, Urine Mucus 0 SEEN Radiology Impression Chest X-Ray 04/27/21 22:00 IMPRESSION: Small left pleural effusion with mild left basilar atelectasis versus infiltrate. at 2228 Reported and signed by: Lauri Brooks MD Electronically Signed: Lauri Brooks MD at 22:27 EDT Tel , Service support , Assessment & Plan Assessment/Plan (1) HAP (hospital-acquired pneumonia): (2) Sepsis: (3) Pleural effusion on left: PLAN: #Sepsis due to health associated pneumonia * SIRS criteria is tachypnea and leucocytosis * admit to PCU * hydrate with IVF * get blood cultures * IV vancomycin and zosyn * urine for strep and legionella * #Health associated pneumonia: as above #Recent acute gallstone pancreatitis * s/p laparoscopic cholecystectomy * stable * #Hyperlipidemia: on atorvastatin #Hypertension: on lisinopril DVT prophylaxis: lovenox Charges/Coding Visit Charges Inpatient E&M: 43591 Init Hosp L3
[2021-04-28] VITALS (9 sets, daily range): BP systolic 134–147; BP diastolic 82–85; PULSE 59–83; RESP 16–32; TEMP 36.3–37.3; O2SAT 96–99; BMI 33.6
--- NOTE | 2021-04-28 01:27 | PCM.RX.CS ---
Consult Pharmacy has been consulted to manage selected antiobiotic: Vancomycin Type of Consult: New start Suspected Infection: Sepsis Labs: Sodium 137 mmol/L (136-145) 04/27/21 20:40 Potassium 3.0 mmol/L (3.5-5.1) L 04/27/21 20:40 Chloride 101 mmol/L (98-107) 04/27/21 20:40 Carbon Dioxide 29.0 mmol/L (21.0-32.0) 04/27/21 20:40 Anion Gap 7 (5-15) 04/27/21 20:40 BUN 8 mg/dL (7-18) 04/27/21 20:40 Creatinine 0.78 mg/dL (0.70-1.30) 04/27/21 20:40 Est GFR (MDRD) Af Amer 134 mL/min (>60) 04/27/21 20:40 Est GFR (MDRD) Non-Af 110 mL/min (>60) 04/27/21 20:40 BUN/Creatinine Ratio 10.2 RATIO (10-20) 04/27/21 20:40 Glucose 98 mg/dL (74-106) 04/27/21 20:40 Weight used for dosin kg Estimated Creatinine Clearance: 122.9 Goal Trough: 15-20 mcg/mL Pharmacy Plan for Drug Dosing: Pharmacy Service will continue to monitor and adjust dosing as required. Medications Vancomycin HCl 1,250 mg/ (Sodium Chloride) 275 mls @ 167 mls/hr IV Q8H ROSS Vancomycin HCl 2,000 mg/ (Sodium Chloride) 540 mls @ 250 mls/hr IV X1 ONE Stop: 04/28/21 02:03 Last Admin: 04/28/21 00:54 Dose: 250 mls/hr Documented by: Follow-Up Labs: Trough Vancomycin Labs to be done on [date and time ordered]: 04/29 @ 0030
[2021-04-28 01:43] LABS: Absolute Lymphocyte Count 2.92 X10^3/uL (0.83-4.51); Absolute Neutrophil Count 10.3 X10^3/uL (2.0-7.7); Basophil% 0.6 % (0-1); Eosinophil# 0.19 X10^3/uL; Eosinophils% 1.2 % (0-5); Hematocrit 40.5 % (40-54); Hemoglobin 13.1 g/dL (13.0-16.5); Lymphocyte # 2.92 X10^3/ul (0.83-4.51); Lymphocyte % 18.9 % (19-41); Mean Corp Hgb Conc 32.3 g/dL (32-36); Mean Corpuscular Hgb 28.2 pg (27.0-32.0); Mean Corpuscular Volume 87.3 fL (80-94); Mean Platelet Vol. 10.9 fl (6.2-12.0); Monocyte% 9.7 % (0-10); NRBC Flagged by Analyzer 0 % (0-5); Neutrophil # 10.31 X10^3/uL (2.7-7.7); Neutrophil % 67.1 % (47-70); Platelet Count 260 K/mm3 (150-450); RBC Distribution Width CV 12.8 % (11.6-14.6); RBC Distribution Width SD 40.5 fl (35.1-43.9); Red Blood Count 4.64 M/mm3 (4.6-6.2); White Blood Count 15.4 K/mm3 (4.4-11.0)
[2021-04-28 01:54] LABS: Anion Gap 10 (5-15); BUN 7 mg/dL (7-18); BUN/Creat Ratio 9.9 RATIO (10-20); Calcium,Total 7.9 mg/dL (8.5-10.1); Chloride 107 mmol/L (98-107); Creatinine, Serum 0.71 mg/dL (0.70-1.30); EST Glomerular Filtration Rate 124 mL/min (>60); Est Glom Filt Rate - Afr Amer 150 mL/min (>60); Estimated Creatinine Clearance 113.79 ml/min; Glucose 89 mg/dL (74-106); Potassium 3.1 mmol/L (3.5-5.1); Sodium Level 138 mmol/L (136-145)
[2021-04-28] MEDS: KCL 20MEQ in 0.9% NS 20 MEQ/1,000 ML IV.SOLN. 150 MEQ IV ×2 (02:42→10:13)
--- NOTE | 2021-04-28 06:45 | CT_ITS ---
We are attempting to reach an attending provider to discuss findings. An addendum with communication details will be sent when the communication is complete. EXAM: CT ABDOMEN AND PELVIS WITH INTRAVENOUS CONTRAST CLINICAL INDICATION: Leukocytosis after cholecystectomy. TECHNIQUE: Helically acquired images were obtained of the abdomen and pelvis with intravenous contrast. This CT exam was performed using one or more of the following dose reduction techniques: automated exposure control, adjustment of the mA and/or kV according to patient size, and/or use of iterative reconstruction technique. This report was created using [employer] report Remember [employer] technology. CONTRAST: Oral and amp; IV Gastrografin and amp; 100mL Isovue-300 COMPARISON: CT abdomen and pelvis with contrast 04/19/2021. FINDINGS: LOWER THORAX: Moderate left posterior pleural fluid and minimal right posterior pleural fluid. Minimal compressive atelectases of the left posterior lung base. No cardiomegaly. No significant pericardial effusion. ABDOMEN: LIVER: 4.3 x 6.3 cm hypodense fluid collection containing small air bubbles mild diffuse fatty infiltration of liver. Nonenhancing cyst in the left hepatic lobe. GALLBLADDER AND BILE DUCTS: At the cholecystectomy site. This simulates the configuration of the gallbladder. No intra- or extrahepatic biliary ductal dilation. PANCREAS: Moderate amount of edema around the body and tail of pancreas consistent with acute pancreatitis. No focal cystic or solid mass. SPLEEN: Unremarkable. Normal size without focal cystic or solid mass. ADRENALS: Unremarkable. No nodules. KIDNEYS AND URETERS: Unremarkable. Normal renal size and position. No hydronephrosis. STOMACH AND BOWEL: Unremarkable. No stomach or bowel distention. No focal inflammatory change. PELVIS: APPENDIX: Normal. BLADDER: Unremarkable. REPRODUCTIVE: Unremarkable as visualized. No mass. ABDOMEN and PELVIS: INTRAPERITONEAL SPACE: Unremarkable. No ascites or other fluid collection. No free air. BONES/JOINTS: Unremarkable. No suspicious lytic or blastic abnormality. SOFT TISSUES: Unremarkable. No discrete abdominal or pelvic wall hernia. VASCULATURE: Unremarkable. Abdominal aorta is non-dilated. LYMPH NODES: Unremarkable. No enlarged lymph nodes. CT/Abdomen/Pelvis WITH Contrast IMPRESSION: 1. Worsening of acute pancreatitis with marked increase in the amount of edema around the body and tail of the pancreas. 2. 4.3 x 6.3 cm loculated fluid collection containing gas bubbles in the cholecystectomy site simulates the configuration of the gallbladder. 3. No other additional findings or changes when compared to 04/19/2021. Electronically Signed: Wali Montenegro MD at 10:25 EDT , Service support ,
--- NOTE | 2021-04-28 07:58 | PN.SURG_ITS ---
Subjective Subjective Patient is not reporting any shortness of breath. He had some fever yesterday and that was what brought him into the emergency room. Patient is not having any abdominal pain today. Objective Data Objective Data Vital Signs: Vital Signs Temp Pulse Resp BP Pulse Ox 99.1 F 59 L 16 141/83 H 98 04/28/21 02:04 04/28/21 04:51 04/28/21 02:04 04/28/21 02:04 04/28/21 02:04 Oxygen Delivery Method Room Air Weight: 214 lb 15.211 oz Body Mass Index (BMI) 33.6 Intake & Output: Intake and Output for Last 24 Hours 04/26/21 04/27/21 04/28/21 23:59 23:59 23:59 Intake Total 1000 / 1000 640 / 640 Balance 1000 / 1000 640 / 640 Lab / Micro Data Result Diagrams: 04/28/21 01:30 04/28/21 01:30 Labs: Laboratory Results - last 24 hr 04/27/21 20:40: WBC 14.5 H, RBC 5.03, Hgb 14.4, Hct 43.4, MCV 86.3, MCH 28.6, MCHC 33.2, RDW Std Deviation 40.0, RDW Coeff of [place] 12.8, Plt Count 299, MPV 11.8, Immature Gran % (Auto) 2.300 H, Neut % (Auto) 68.2, Lymph % (Auto) 18.0 L, [place] % (Auto) 10.1 H, Eos % (Auto) 0.9, Baso % (Auto) 0.5, Absolute Neuts (auto) 9.9 H, Absolute Lymphs (auto) 2.61, Nucleated RBC % 0 04/27/21 20:40: Sodium 137, Potassium 3.0 L, Chloride 101, Carbon Dioxide 29.0, Anion Gap 7, BUN 8, Creatinine 0.78, Estim Creat Clear Calc 103.58, Est GFR (MDRD) Af Amer 134, Est GFR (MDRD) Non-Af 110, BUN/Creatinine Ratio 10.2, Glucose 98, Calcium 8.4 L, Total Bilirubin 1.00, AST 45 H, ALT 109 H, Alkaline Phosphatase 108, Total Protein 6.9, Albumin 2.6 L, Globulin 4.3 H, Albumin/Globulin Ratio 0.6 L, Lipase 343 04/27/21 20:40: Lactic Acid 0.9 04/27/21 21:50: PT 14.8, INR 1.2, APTT 26.8 04/27/21 22:45: Urine Color Yellow, Urine Clarity Clear, Urine pH 8.0, Ur Spec ific [place] 1.010, Urine Protein Negative, Urine Glucose (UA) Normal, Urine Ketones 15 H, Urine Occult Blood Negative, Urine Nitrite Negative, Urine Bilirubin Negative, Urine Urobilinogen 1 H, Ur Leukocyte Esterase Negative, Urine RBC 0 SEEN, Urine WBC 0 SEEN, Ur Squamous Epith Cells 0 SEEN, Urine Bacteria 0 SEEN, Urine Mucus 0 SEEN 04/28/21 01:30: WBC 15.4 H, RBC 4.64, Hgb 13.1, Hct 40.5, MCV 87.3, MCH 28.2, MCHC 32.3, RDW Std Deviation 40.5, RDW Coeff of [place] 12.8, Plt Count 260, MPV 10.9, Immature Gran % (Auto) 2.500 H, Neut % (Auto) 67.1, Lymph % (Auto) 18.9 L, [place] % (Auto) 9.7, Eos % (Auto) 1.2, Baso % (Auto) 0.6, Absolute Neuts (auto) 10.3 H, Absolute Lymphs (auto) 2.92, Nucleated RBC % 0 04/28/21 01:30: Sodium 138, Potassium 3.1 L, Chloride 107, Carbon Dioxide 21.0, Anion Gap 10, BUN 7, Creatinine 0.71, Estim Creat Clear Calc 113.79, Est GFR (MDRD) Af Amer 150, Est GFR (MDRD) Non-Af 124, BUN/Creatinine Ratio 9.9 L, Glucose 89, Calcium 7.9 L Micro: Microbiology 04/28/21 22:45 Interface Orders Streptococcus pneumoniae Antigen (M - Final 04/27/21 22:45 Interface Orders Legionella Antigen - Final Radiography Diagnostic Testing: Radiology Impression Chest X-Ray 04/27/21 22:00 IMPRESSION: Small left pleural effusion with mild left basilar atelectasis versus infiltrate. at 2228 Reported and signed by: Lauri Brooks MD Electronically Signed: Lauri Brooks MD at 22:27 EDT Tel , Service support , Physical Exam Const no apparent distress Resp normal respiratory effort Cardio regular rate and regular rhythm GI soft to palpation and non-tender Inspection: Negative for abdominal distention Assessment & Plan Assessment/Plan (1) Acute gallstone pancreatitis: PLAN: Patient had gallstone pancreatitis last week and had ERCP and subsequent laparoscopic cholecystectomy. The patient reports that yesterday he had a fever and he presented to the emergency room with a white count of 14. The patient is not having any abdominal pain and was admitted with possible pneumonia. Patient does not report any shortness of breath this morning. I will order a CT of the abdomen pelvis with p.o. and IV contrast to rule out any intra-abdominal source of his white count and fever. Adan So MD Pager: [facility] [address] [place] [address], [address] [place] [address] Office:
[2021-04-28] MEDS: Enoxaparin 40 MG/0.4 ML Syringe SC (10:05)
[2021-04-28] MEDS: Potassium Chloride Oral Tablet 20 MEQ 40 MEQ PO (10:05)
--- NOTE | 2021-04-28 11:29 | CASEMGMT ---
CORBY BERNAL assessment: Face to Face with patient for initial transition planning/care coordination assessment. CORBY BERNAL introduced self and role at [facility], pt voices understanding and consents to assessment. Pt is sitting up in bed in no distress on room air. Pt is A/Ox4 and answers all questions appropriately. Care providers, pharmacy, and demographics verified. Presentation: Pt with fever after gallbladder removed last week Admitting dx: Sepsis d/t HCAP PCP: [facility] Specialists: None currently Preferred Pharmacy: [facility] [place] Living Will/HPOA: Pt states does not have LW/HPOA and declines AD info. LNOK: Evonne Peters, Living Arrangements: Pt states lives with on main level of 2 story home and states no concerns at home. Pt is independent with ADL's. Transportation: Pt states drives self and states no transportation concerns. DME/HHC: Pt states [facility] and declines need for any further DME. Pt states no hx of HHC or SNF. Pt states no concerns with going home at time of discharge. 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 Pt states does not smoke cigarettes but does drink ETOH occasionally. Pt states no further concerns/needs. CM to follow for any further discharge planning/needs. Advised pt to ask for CM if any further questions/concerns/needs arise, voices understanding. Pt Goal: Home Plan[place] CORBY BERNAL
[2021-04-28 12:55] LABS: Lipase 406 U/L (73-393)
--- NOTE | 2021-04-28 16:44 | DCINST_ITS ---
Discharge Instructions Diet Discharge Diet: No restrictions Activity Discharge Activity: Return to Normal Activity Weight Bearing Status: Full weight bearing Follow Up Care Test Results: Test results from this visit will be discussed in further detail at your follow-up appointment, if applicable. Discharge Plan Admission Admit Date/Time: 04/28/21 00:16 Primary Reason for Your Visit: atelectasis Attending Provider: Lauri Lam Primary Care Provider: [facility] Discharge Orders/Prescriptions Prescriptions: Continued lisinopril 5 mg Tablet 5 mg PO DAILY RF: 0 atorvastatin [Lipitor] 10 mg Tablet 10 mg PO QHS RF: 0 ibuprofen 600 mg Tablet 600 mg PO Q6H PRN PRN (Reason: Pain Score 1-10) Qty: 0 RF: 0 oxycodone 5 mg tablet 5 mg PO Q6H PRN (Reason: pain) 5 Days Qty: 15 RF: 0 Referrals / Follow Up: [place] [Primary Care Provider] - Within 2 Weeks Adan So MD [STAFF PHYSICIAN] - See Referral Note ( as directed) Disposition Disposition (needs filled in before D/C Order can be placed): Home, Self Care
--- NOTE | 2021-04-29 16:30 | DS.PCM_ITS ---
Providers Date of Admission: 04/28/21 Date of Discharge: 04/28/21 Primary Care Physician: [facility] Reason For Visit: SEPSIS DUE TO HEALTH ASSOCIATED PNEUMONIA Diagnosis Discharge Diagnosis (1) Acute gallstone pancreatitis: Status: Acute Code(s): K85.10 - Biliary acute pancreatitis without necrosis or infection Plan: 1. Left lower lobe atelectasis #2 fever secondary to left lower lobe atelectasis #3 hyperlipidemia Left lower lobe pneumonia and sepsis was ruled out, patient did not have pancreatitis-this was ruled out Medications at Discharge Home Medications atorvastatin [Lipitor] 10 mg PO QHS 04/19/21 lisinopril 5 mg PO DAILY 04/19/21 ibuprofen 600 mg PO Q6H PRN PRN #0 tab 04/25/21 oxycodone 5 mg PO Q6H PRN 5 Days #15 tab 04/25/21 Hospital Course Operations None Procedures None Summary of Care Provided Minutes Spent on Discharge: 31 Hospital Course: This 50-year-old white male was seen in the emergency room at [facility] with chief complaint of fever, he had recently undergone a cholecystectomy and had pancreatitis at that time. Work-up in the emergency room included a chest x-ray which was read out as showing a left lower lobe infiltrate/atelectasis, patient's white blood cell count was slightly elevated. Patient was not hypoxic and had no signs or symptoms of pneumonia. Patient was admitted to PCU for suspected sepsis and hospital-acquired pneumonia, this examiner reviewed his chest x-ray and his clinical picture and did not feel that the patient had sepsis and pneumonia. Patient was seen in consultation by general surgery, CT of the abdomen was obtained which showed evidence of pancreatitis-however, patient had no signs or symptoms of pancreatitis and I did not feel that he had ongoing pancreatitis. On 04/28/2021, patient was seen and examined: On examination he appeared in good health and spirits. Vital signs as documented. Skin warm and dry and without overt rashes. Neck without JVD, neck was supple, trachea midline, thyroid was normal. Lungs clear bilaterally, normal air movement was noted. Heart exam notable for regular rhythm, normal sounds and absence of murmurs, rubs or gallops. Abdomen unremarkable and without evidence of organomegaly, masses, or abdominal aortic enlargement. Bowel sounds are present, abdomen is not distended. Extremities nonedematous, no cyanosis was noted, no clubbing was noted. Neuro: Cranial nerves II through XII are grossly intact, no focal motor deficits were noted, sensation to light touch and pinprick intact, motor exam 5/5 throughout. Psych: Patient is alert and oriented x3, he does not appear anxious or depressed, he does not appear agitated. Patient appears stable for discharge home on 04/28/2021, I talked at length with the patient and his who was in the room at the time of my examination and at the time of discharging the patient. Weight / BMI Weight Weight: 97.5 kg Body Mass Index (BMI) 33.6 ABG / Lab / Microbiology Data Result Diagrams: 04/28/21 01:30 04/28/21 01:30 Microbiology: Microbiology 04/28/21 22:45 Interface Orders Streptococcus pneumoniae Antigen (M - Final 04/27/21 22:45 Interface Orders Legionella Antigen - Final D/C Instructions Discharge Diet: No restrictions Weight Bearing Status: Full weight bearing Meaningful Use Info Meaningful Use Diagnoses (Choose all that apply): None applicable Discharge Plan Admission Admit Date/Time: 04/28/21 00:16 Primary Reason for Your Visit: atelectasis Attending Provider: Lauri Lam Primary Care Provider: [place], [place] Instructions Additional Instructions / Restrictions: Patient Problems: Altered Health Status related to Hospitalization Patient Goals: *Optimal Level of Health *Keep Appointments *Medication Compliance *Remain Safe Discharge Orders/Prescriptions Prescriptions: Continued lisinopril 5 mg Tablet 5 mg PO DAILY RF: 0 atorvastatin [Lipitor] 10 mg Tablet 10 mg PO QHS RF: 0 ibuprofen 600 mg Tablet 600 mg PO Q6H PRN PRN (Reason: Pain Score 1-10) Qty: 0 RF: 0 oxycodone 5 mg tablet 5 mg PO Q6H PRN (Reason: pain) 5 Days Qty: 15 RF: 0 Referrals / Follow Up: Adan So MD [STAFF PHYSICIAN] - See Referral Note ( as directed) [place], [place] [Primary Care Provider] - Within 2 Weeks Disposition Disposition (needs filled in before D/C Order can be placed): Home, Self Care Charges/Coding Visit Charges OBSV E&M: 65372 Observ/hosp same date L3
== END 2021-04-28 17:38 | disposition home or self-care (01) | DRG 206 ==
LOC: ED 04-28 → PCU 04-28 00:35
PROVIDERS: Student in an Organized Health Care Education/Training Program; Admitting Provider Internal Medicine; Emergency Provider Emergency Medicine; Visit Provider Internal Medicine
DX: J98.11 Atelectasis (principal); E78.5 Hyperlipidemia, unspecified; G47.30 Sleep apnea, unspecified; I10 Essential (primary) hypertension; Z79.899 Other long term (current) drug therapy; Z87.891 Personal history of nicotine dependence
CPT/HCPCS: 36415; 71046; 74177; 80048; 80053; 81001; 83605; 83690; 85025; 85610; 85730; 87040; 87449; 93005; 99285; 99406; J7030; J7040; Q9967; A4216

== ENCOUNTER → 2024-07-23 | Outpatient (CLI) | payer OTHER, SELFPAY ==
--- NOTE | 2024-07-23 07:53 | US_ITS ---
STUDY: ABDOMINAL ULTRASOUND - RIGHT UPPER QUADRANT; ELASTOGRAPHY REASON FOR VISIT: Male, 53 years old. Elevated liver function tests. TECHNIQUE: Ultrasound evaluation of the right upper quadrant was performed with real-time and static rhodes-scale imaging. Point quantification shear wave elastography was performed ([employer]). TECHNICAL QUALITY: Limited. Examination limited by bowel gas. COMPARISON: Comparison is made with prior study April 20, 2021. FINDINGS: Liver: The liver measures 15.2 cm. There is increased echogenicity consistent with fatty infiltration. The bile ducts are within normal limits. There is hepatic color flow. The direction of portal flow is hepatopetal. There is a 1.5 cm x 1.4 cm x 2 cm cyst in the lateral aspect of the left lobe of the liver. Median liver stiffness measured 8.9 kPa. Gallbladder: The patient is status post cholecystectomy. Common Bile Duct (C.B.D.): The common bile duct measures 4 mm. Pancreas: There is normal echogenicity of the visualized pancreas. There is no demonstrated pancreatic mass or cyst. Right Kidney: Normal size of the right kidney. The right kidney measures 10.3 cm x 5.1 cm x 6 cm. Normal renal cortex. The right cortex measures 1.5 cm. There is a 1.7 cm x 2 cm x 1.4 cm cyst in the lateral aspect of the kidney. There is no right hydronephrosis. US/ABD Limited w/ Elastography IMPRESSION: 1. Liver stiffness measures 8.9 kPa compatible with F2-F3 (Mild to moderate liver fibrosis) Metavir score. Electronically Signed: Issac [place] MD at 9:40 EDT ,
== END | disposition home or self-care (01) ==
LOC: US 07:50
PROVIDERS: Referring Provider Family Medicine; Visit Provider Family Medicine
DX: R94.5 Abnormal results of liver function studies (principal)
CPT/HCPCS: 76705; 76981

== ENCOUNTER 2024-08-12 10:19 | Day surgery (SDC) | payer OTHER, SELFPAY ==
[2024-08-12] VITALS (8 sets, daily range): BP systolic 86–122; BP diastolic 54–91; PULSE 57–67; RESP 16–18; TEMP 36.1–36.6; O2SAT 95–99; BMI 34.2
--- NOTE | 2024-08-12 10:36 | HP.PCM_ITS ---
History and Physical Date of Admission: 08/12/24 Date of Service: 07/23/24 MR#: [id number] Acct: [id number] Name: CAROLINE BARNETT Rep #: [id number] : 1970 Provider: Dr. Stephanie Patel MD Age/Sex: 53/M Location: [facility] Status: Signed Intake Vital Signs 04/28/2115:11 07/23/2414:14 Height 5 ft 7 in 5 ft 7 in Weight: 221 lb BMI 34.6 BP 134/98 H Blood Pressure Location Rt brachial Position Sitting Respiration 18 Pulse 82 Pulse Source Monitor Pulse Oximetry (%) 97 Oxygen Delivery Method room air Intake Visit Reasons: COLONOSCOPY Chief Complaint: colonoscopy Vocational Education Teacher Required: No Is patient in pain?: No Allergies No Known Allergies Allergy (Verified 07/23/24 14:15) Medications ?Medication ?Instructions ?Recorded ?Confirmed ?Type atorvastatin 10 mg tablet (Lipitor) 10 mg PO QHS cholesterol 04/19/21 07/23/24 History lisinopril 5 mg tablet 5 mg PO DAILY BP 04/19/21 07/23/24 History ibuprofen 600 mg tablet 600 mg PO Q6H PRN PRN Pain Score 04/25/21 07/23/24 Rx 1-10 #0 tabs Have you fallen in the past year?: No PFSH Medical History (Updated 07/24/24 @ 12:[address] Stephanie Patel MD) History of colon polyps Acute pancreatitis after endoscopic retrograde cholangiopancreatography (ERCP) CPAP (continuous positive airway pressure) dependence Sleep apnea Choledocholithiasis with obstruction Hyperlipemia HTN (hypertension) Surgical History (Updated 07/23/24 @ 14:13 by Anuja Ferrara) History of colonoscopy (~2017) S/P cholecystectomy Family History Father Cancer lung Heart diseaseMother Myocardial infarction Heart disease Hypertension CVA (cerebral vascular accident)Sister Cancer renal Social History household members: spouse housing: house Smoking Status: Former smoker alcohol intake: current alcohol intake frequency: holidays/special occasions only substance use type: does not use HPI HPI HPI: 53-year-old male presents for screening colonoscopy. Patient's last colonoscopy was in 2019 patient had tubular adenoma at that time. Patient denies any family history of colon cancer. Patient denies any chronic abdominal pain/nausea/vomiting/reflux. Patient has bowel moods daily denies any blood. 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 Patient also concerned that he may have actual hernia at his mid abdomen from his laparoscopic cholecystectomy previously. ROS General General: No weight change, appetite, fatigue, colon cancer or breast cancer HEENT HEENT: No difficulty swallowing, eye injury, eye surgery, swollen glands or hoarseness Endo Endocrine: No thyroid disease, diabetes mellitus, thyroid cancer, Hair loss, heat intolerance or cold intolerance Skin Skin: No rash or changing moles Musc Musculoskeletal: No back problems, arthritis, rheumatoid arthritis, gout or joint pain Cardio Cardiovascular: Yes high blood pressure; No murmur, pacemaker, heart disease, atrial fibrillation, heart attack, heart stent, palpitations, shortness of breat with exertion or chest pain Additional Details: High Cholesterol Psych Psychiatric: No depression, anxiety or hearing voices Resp Respiratory: No shortness of breath, Yes sleep apnea, No cough, No COPD, No asthma, No emphysema and No wheezing Gastro Gastrointestinal: No abdominal pain, No nausea or vomiting, No diarrhea, No constipation, No blood in stool, No acid reflux, No hemorrhoids, No ulcers, No gallbladder problem and No black,tarry stools Jovan Hematologic: No blood thinners, No blood disorders, No bleeding, No anemia and No blood clots Neuro Neurologic: No numbness and No tingling Exam Const General: cooperative, healthy appearing, comfortable and no acute distress [facility] Head: normocephalic and atraumatic Neck Neck: supple Resp Effort & Inspection: normal respiratory effort Cardio Rate: regular rate GI Inspection: non-distended Palpation: soft, hernia (Mid abdomen midline-incisional hernia) other (Incisional difficult to appreciate fascial defect on exam but bedside ultrasound seems to be consistent) and nontender Skin General: no rashes or lesions noted Neuro General: CN's II-XI intact bilaterally Extrem General: normal to inspection Psych Mental Status: mental status grossly normal Attitude: cooperative Assessment and Plan Assessment and Plan (1) History of colon polyps: Status: Acute (2) Incisional hernia without mention of obstruction or gangrene: Status: Acute Plan Patient does likely have an incisional hernia from his midline trocar site from his laparoscopic cholecystectomy. Difficult to feel on exam but bedside ultrasound does show a defect again not the easiest to see on our office ultrasound. Would likely recommend a CT scan prior to surgery if patient wanted it repaired. I would recommend repair at that time?otherwise okay to continue to monitor. I have discussed the above with the patient. I have offered the patient colonoscopy for evaluation. I have explained the risks/benefits of the procedure and described the procedure. I have discussed the risks with the patient, including but not limited to: infection, bleeding, perforation of the GI tract requiring emergency surgery, inability to complete the procedure, injury to any internal organs, complications of anesthesia, etc. - the patient understands and agrees to proceed. I have answered all the patient's questions to the patient's satisfaction and the patient has no further questions. The patient has been given instructions for the colon cleansing preparation. 1 day of clears MiraLAX Dulcolax prep?as patient [facility] Stephanie Patel M.D. Pager: [phone] [facility] [address] [place] [address], [facility], [address] [place] [address] Office: [phone] Coding Level of Care Code Off vis,new,level 3 Diagnoses History of colon polyps Z86.010 Incisional hernia without mention of obstruction or gangrene K43.2 Clinical Quality Measures Falls Risk Screening/Assistive Devices Have you fallen in the past year?: No 07/24/24 1226 <Electronically signed by Stephanie Patel MD> Date Stephanie Patel MD
--- NOTE | 2024-08-12 11:20 | PRE.ANES_ITS ---
ASA Classification* ASA Classification ASA Classification: 2 (SEE WRITTEN PRE ANESTHESIA RECORD FOR FULL ASSESSMENT) Assessment & Plan Anesthesia* Anesthesia Assessment Anesthesia Assessment: Discussed sedation and/or anesthesia options, risks, benefits, and alternatives with patient/parents/legal guardian/POA. Questions invited. The patient/parents/legal guardian/POA seems to understand and agrees to proceed with anesthesia plan. Reviewed the physical assessment, medical history, allergy history and patient home medications list prior to surgery/procedure/anesthetic and documented any changes. Performed airway and anesthesia risk assessments. Anesthesia Type Anesthesia Type: MAC (SEE WRITTEN PRE ANESTHESIA RECORD FOR FULL ASSESSMENT) Anesthesia Focused Assessment* Temperature: 97.8 F Pulse Rate: 67 Blood Pressure: 122/91 Respiratory Rate: 17 Pulse Ox: 99 Airway Assessment Mouth opens: >3 cm Mallampati Score: II Focused Labs Anesthesia Preop lab: CBC WBC 15.4 K/mm3 (4.4-11.0) H 04/28/21 01:30 RBC 4.64 M/mm3 (4.6-6.2) 04/28/21 01:30 Hgb 13.1 g/dL (13.0-16.5) 04/28/21 01:30 Hct 40.5 % (40-54) 04/28/21 01:30 Plt Count 260 K/mm3 (150-450) 04/28/21 01:30 CHEMISTRY Potassium 3.1 mmol/L (3.5-5.1) L 04/28/21 01:30 Sodium 138 mmol/L (136-145) 04/28/21 01:30 Magnesium 1.8 mg/dL (1.8-2.4) 08/22/15 11:20 Phosphorus 2.1 mg/dL (2.5-4.9) L 08/22/15 11:20 BUN 7 mg/dL (7-18) 04/28/21 01:30 Creatinine 0.71 mg/dL (0.70-1.30) 04/28/21 01:30 Glucose 89 mg/dL (74-106) 04/28/21 01:30 TSH 2.61 uIU/mL (0.358-3.74) 11/18/15 07:59 COAG PT 14.8 SECONDS (11.7-14.9) 04/27/21 21:50 Pre-Assessment Diagnosis/Proposed Procedure Planned Operative Procedure(s): COLONOSCOPY Anesthesia History 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 When Was Last Pacemaker Check QUESTION #4 FULL TEXT: You/Your Family Experience fever (hyperthermia) with Anesthesia Last Oral Intake Last Oral intake: Last Oral Intake NPO since 05:30 08/12/24 10:47 Meds taken in AM with sips of No 08/12/24 10:47 water? 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 operator Female No 08/11/24 09:37 HX of Motion Sickness No 08/11/24 09:37 HX of N/V After Surgery No 08/11/24 09:37 Non-Smoker Yes 08/11/24 09:37 Duration of Surgery greater No 08/11/24 09:37 than 60 minutes Number of Risk Factors 1 08/11/24 09:37 PONV Score Low Risk 08/11/24 09:37 Height & Weight Height & Weight: Anesthesia: Height & Weight Height 5 ft 7 in 08/12/24 10:47 Weight: 99 kg 08/12/24 10:47 Body Mass Index (BMI) 34.2 08/12/24 10:47 Respiratory Assessment Respiratory Assessment - waterproofing machine operator: Respiratory Tract Infection Hx - waterproofing machine operator Hx Respiratory Tract Infection No 08/11/24 09:37 STOP Sleep Apnea STOP Sleep Apnea - waterproofing machine operator: STOP Sleep Apnea - waterproofing machine operator Hx Hypertension Yes 08/11/24 09:37 Hx Sleep Apnea Yes 08/11/24 09:37 CPAP Yes 08/11/24 09:37 BIPAP No 08/11/24 09:37 Do you snore loudly (louder than talking or can be heard Do you often feel tired/ fatigued/ sleepy during daytime? Has anyone observed you stop breathing during sleep? STOP Results Positive 08/11/24 09:37 QUESTION #5 FULL TEXT : Do you snore loudly (louder than talking or can be heard through closed doors)? 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 Specify any problems Hx of Preganancy in last 3 N/A 08/11/24 09:37 Months Nurse Filling Out Transfusion [id number] 08/11/24 09:37 & Questions: Date: 08/11/24 08/11/24 09:37 Time: 09:42 08/11/24 09:37 Patient unable to answer at this time (ie. 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: /Reproductive Hx- waterproofing machine operator Hx Now Gestational Age (in weeks): EDC: Hx Hx Para Hx Section SAB No 04/20/21 03:59 PFSH Medical History Wears contact lenses Fatty liver History of colon polyps Acute pancreatitis after endoscopic retrograde cholangiopancreatography (ERCP) CPAP (continuous positive airway pressure) dependence Sleep apnea Choledocholithiasis with obstruction Hyperlipemia HTN (hypertension) Home Medications ?Medication ?Instructions ?Recorded ?Last Taken ?Type atorvastatin 10 mg tablet (Lipitor) 10 mg PO QHS cholesterol 04/19/21 08/11/24 History lisinopril 5 mg tablet 5 mg PO DAILY BP 04/19/21 08/11/24 History cholecalciferol (vitamin D3) 25 25 mcg PO DAILY 08/12/24 08/11/24 History mcg (1,000 unit) capsule (Vitamin D3) Allergy/AdvReac Type Severity Reaction Status Date / Time No Known Allergies Allergy Verified 08/12/24 10:46 Family History Father Cancer lung Heart disease Mother Myocardial infarction Heart disease Hypertension CVA (cerebral vascular accident) Sister Cancer renal Surgical History History of colonoscopy (~2017) S/P cholecystectomy Social History household members: spouse housing: house Smoking Status: Former smoker alcohol intake: current alcohol intake frequency: holidays/special occasions only substance use type: does not use Review of Systems (Anesthesia) ROS Narrative System reviewed and no additional complaints, except as documented.
--- NOTE | 2024-08-12 11:30 | COLBX_PTH ---
PATHOLOGY RESULTS PATIENT: CAROLINE BARNETT LOC: EN U#:[id number] AGE/SX: 53/M ROOM: RE08/12/[address]: Dr. Stephanie Patel MD : 1970 BED: DIS: 08/12/2024 SPEC #: [id number] RECD: 08/12/24 14:54 STATUS: JOSE REDomenico #: [id number] CECILIA: 08/12/24 11:[address]: Stephanie Patel DEPT: SURGICAL PATHOLOGY RECD BY: Patricia Cotto ENTERED: 08/13/24 07:37 SP TYPE: COLON BX OTHR DR: [facility] Tissues: Transverse colon Procedures: Surgery Specimen Level IV HEADER OPERATION: Colonoscopy with polyp biopsy and polypectomy PRE-OP DIAGNOSIS: History of polyps, incisional hernia TISSUE SUBMITTED: Transverse colon polyp biopsy MICROSCOPIC DIAGNOSIS Transverse colon polyp, biopsy: Tubular adenoma. 08/14/2024 MICROSCOPIC DESCRIPTION Slides are reviewed. GROSS DESCRIPTION Received in fixative is one container labeled with the patient's name and designated Transverse colon polyp biopsy. The specimen consists of two irregular fragments of light beltran soft tissue that in aggregate measure 0.4 x 0.2 x 0.1 cm. The specimen is totally submitted in one cassette. 08/13/2024 TC:1 CPT:93353
--- NOTE | 2024-08-12 12:19 | OP.CCLET_ITS ---
08/12/2024 [facility] Re : Colonoscopy procedure for Austyn Honeycutt [facility] This procedure was performed on Monday, August 12, 2024. My impressions and recommendations are as follows: Impressions : - Hemorrhoids found on perianal exam. - Non-bleeding internal hemorrhoids. - One less than 5 mm polyp in the transverse colon, removed with a cold biopsy forceps. Resected and retrieved. - One less than 5 mm polyp in the descending colon, removed with a hot snare. Complete resection. Polyp tissue not retrieved. - The examination was otherwise normal. Recommendations : - Discharge patient to home. - Resume previous diet. - Continue present medications. - Await pathology results. - Repeat colonoscopy in 5 years for surveillance based on pathology results. My findings are described in the full procedure note, which is enclosed. If I can be of further assistance, please feel free to contact me at Doctor phone number(s): , Work: . Sincerely, MD Stephanie Lozano MD 08/12/2024 12:19:21 PM This report has been signed electronically.
--- NOTE | 2024-08-12 12:19 | OP.COLON_ITS ---
Patient Name: Austyn Honeycutt Procedure Date: 08/12/2024 11:24 AM Date of : 1970 Age: 53 Procedure: Colonoscopy Indications: High risk colon cancer surveillance: Personal history of colonic polyps Providers: Stephanie Patel MD Referring MD: Stephanie Patel MD Medicines: Monitored Anesthesia Care Patient Profile: This is a 53 year old male. Last Colonoscopy: 2018. Complications: No immediate complications. Procedure: Pre-Anesthesia Assessment: - Prior to the procedure, a History and Physical was performed, and patient medications and allergies were reviewed. The patient's tolerance of previous anesthesia was also reviewed. The risks and benefits of the procedure and the sedation options and risks were discussed with the patient. All questions were answered, and informed consent was obtained. Prior Anticoagulants: The patient has taken no anticoagulant or antiplatelet agents. ASA Grade Assessment: Per anesthesia. After reviewing the risks and benefits, the patient was deemed in satisfactory condition to undergo the procedure. After I obtained informed consent, the scope was passed under direct vision. Throughout the procedure, the patient's blood pressure, pulse, and oxygen saturations were monitored continuously. The Colonoscope was introduced through the anus and advanced to the cecum, identified by the appendiceal orifice, ileocecal valve and palpation. The colonoscopy was performed without difficulty. The patient tolerated the procedure well. The quality of the bowel preparation was good. Scope In: 11:49:00 AM Scope Withdrawal Time 0 hours 17 minutes 10 seconds Scope Out: 12:13:16 PM Total Procedure Duration Time 0 hours 24 minutes 16 seconds Findings: Hemorrhoids were found on perianal exam. Non-bleeding internal hemorrhoids were found. The hemorrhoids were Grade I (internal hemorrhoids that do not prolapse). A less than 5 mm polyp was found in the transverse colon. The polyp was sessile. The polyp was removed with a cold biopsy forceps. Resection and retrieval were complete. A less than 5 mm polyp was found in the descending colon. The polyp was sessile. The polyp was removed with a hot snare. Resection was complete, but the polyp tissue was not retrieved. The exam was otherwise without abnormality. Impression: - Hemorrhoids found on perianal exam. - Non-bleeding internal hemorrhoids. - One less than 5 mm polyp in the transverse colon, removed with a cold biopsy forceps. Resected and retrieved. - One less than 5 mm polyp in the descending colon, removed with a hot snare. Complete resection. Polyp tissue not retrieved. - The examination was otherwise normal. Recommendation: - Discharge patient to home. - Resume previous diet. - Continue present medications. - Await pathology results. - Repeat colonoscopy in 5 years for surveillance based on pathology results. Procedure Code(s): --- Professional --- 21794, PT, Colonoscopy, flexible; with removal of tumor(s), polyp(s), or other lesion(s) by snare technique 74436, 59, Colonoscopy, flexible; with biopsy, single or multiple Diagnosis Code(s): --- Professional --- Z86.010, Personal history of colonic polyps K64.0, First degree hemorrhoids D12.3, Benign neoplasm of transverse colon (hepatic flexure or splenic flexure) D12.4, Benign neoplasm of descending colon CPT copyright 2021 [employer]. All rights reserved. The codes documented in this report are preliminary and upon inflated pad buffer review may be revised to meet current compliance requirements. MD Stephanie Lozano MD 08/12/2024 12:19:21 PM This report has been signed electronically. Number of Addenda: 0 Note Initiated On: 08/12/2024 11:24 AM
--- NOTE | 2024-08-12 12:20 | PCM.POST.ANE ---
Anesthesia: Postop Eval I Current Vital Signs Temperature: 97 F Pulse Rate: 59 Blood Pressure: 86/54 Respiratory Rate: 18 Pulse Ox: 98 Oxygen Delivery Method: Room Air Assessment Airway patent: Yes Spontaneous unlabored respirations: Yes Mental status: Awake and Calm nausea: No Vomiting: No Anesthesia Complication: No Fluid Hydration Crystalloid volume administer (ml): 10 Total IV fluid infused: 10 Progress Note Anesthesia document: Postop Eval 1 completed: Yes
--- NOTE | 2024-08-12 12:47 | POSTOPAN2_ITS ---
Anesthesia Postop Eval I Sum Postop Eval Completion status Anesthesia document: Postop Eval 1 completed: Yes Anesthesia Postop Eval I Summary Anesthesia Postop Eval I Summary: Anesthesia Postop Eval I: Assessment Summary Airway patent Yes 08/12/24 12:32 PRELIMINARY SCHOOL PSYCHOLOGIST.GDOTT Spontaneous unlabored Yes 08/12/24 12:32 PRELIMINARY SCHOOL PSYCHOLOGIST.GDOTT respirations Mental status Awake,Calm 08/12/24 12:32 PRELIMINARY SCHOOL PSYCHOLOGIST.GDOTT nausea No 08/12/24 12:32 PRELIMINARY SCHOOL PSYCHOLOGIST.GDOTT Vomiting No 08/12/24 12:32 PRELIMINARY SCHOOL PSYCHOLOGIST.GDOTT Anesthesia Postop Eval I: Fluid Summary Crystalloid volume administer 10 08/12/24 12:32 PRELIMINARY SCHOOL PSYCHOLOGIST.GDOTT (ml) Colloids volume administered ( ml) Blood Product volume administered (ml) Total IV fluid infused 10 08/12/24 12:32 PRELIMINARY SCHOOL PSYCHOLOGIST.GDOTT Anesthesia Postop Eval I: Summary Notes Anesthesia Complication No 08/12/24 12:32 PRELIMINARY SCHOOL PSYCHOLOGIST.GDOTT Anesthesia Complication Comment: Post-operative progress note Anesthesia: Postop Eval II Evaluation Mental status: Awake Pain Level: 0 nausea: No Vomiting: No
--- NOTE | 2024-08-12 12:47 | PCM.POSTANE2 ---
Anesthesia Postop Eval I Sum Postop Eval Completion status Anesthesia document: Postop Eval 1 completed: Yes Anesthesia Postop Eval I Summary Anesthesia Postop Eval I Summary: Anesthesia Postop Eval I: Assessment Summary Airway patent Yes 08/12/24 12:32 DIRECTOR OF COMPENSATION.GDOTT Spontaneous unlabored Yes 08/12/24 12:32 DIRECTOR OF COMPENSATION.GDOTT respirations Mental status Awake,Calm 08/12/24 12:32 DIRECTOR OF COMPENSATION.GDOTT nausea No 08/12/24 12:32 DIRECTOR OF COMPENSATION.GDOTT Vomiting No 08/12/24 12:32 DIRECTOR OF COMPENSATION.GDOTT Anesthesia Postop Eval I: Fluid Summary Crystalloid volume administer 10 08/12/24 12:32 DIRECTOR OF COMPENSATION.GDOTT (ml) Colloids volume administered ( ml) Blood Product volume administered (ml) Total IV fluid infused 10 08/12/24 12:32 DIRECTOR OF COMPENSATION.GDOTT Anesthesia Postop Eval I: Summary Notes Anesthesia Complication No 08/12/24 12:32 DIRECTOR OF COMPENSATION.GDOTT Anesthesia Complication Comment: Post-operative progress note Anesthesia: Postop Eval II Evaluation Mental status: Awake Pain Level: 0 nausea: No Vomiting: No
== END 2024-08-12 13:01 | disposition home or self-care (01) ==
LOC: EN 10:20 → AC 10:31
PROVIDERS: Referring Provider Surgery; Visit Provider Surgery
PROC: 0DJD8ZZ Inspection of Lower Intestinal Tract, Via Natural or Artificial Opening Endoscopic (ICD-10-PCS; CPT 45378; principal; 2024-08-12 11:25)
DX: Z12.11 Encounter for screening for malignant neoplasm of colon (principal); K43.2 Incisional hernia without obstruction or gangrene; K64.0 First degree hemorrhoids; D12.3 Benign neoplasm of transverse colon; I10 Essential (primary) hypertension; E78.5 Hyperlipidemia, unspecified; G47.30 Sleep apnea, unspecified; K76.0 Fatty (change of) liver, not elsewhere classified; Z79.899 Other long term (current) drug therapy; Z87.891 Personal history of nicotine dependence
CPT/HCPCS: 45380; 45385; 88305; A4216